=== PATIENT | male | born 1940 | race Caucasian/White ===

== ENCOUNTER 2017-03-28 11:11 | Inpatient (IN) ==
[2017-03-28] MEDS ORDERED: ALBUTEROL/IPRATROPIUM 3 ML NEB RESP TX STA (11:25)
[2017-03-28] MEDS ORDERED: FUROSEMIDE 100 MG/10 ML VIAL IV STA (11:25)
[2017-03-28] MEDS ORDERED: methylPREDNISolone SOD SUC 125 MG/2 ML VIAL IV STA (11:25)
[2017-03-28] MEDS ORDERED: methylPREDNISolone SOD SUC 125 MG/2 ML VIAL ONE (11:30)
[2017-03-28] MEDS ORDERED: FUROSEMIDE 100 MG/10 ML VIAL ONE (11:30)
--- NOTE | 2017-03-28 11:58 | EKG Report ---
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
[2017-03-28 12:14] LABS: Hematocrit 46.4 VOL% (42.0-52.0); Hemoglobin 15.4 GM/DL (14.0-18.0); White Blood Count 16.1 T/CUMM (4-12)
[2017-03-28 12:15] LABS: Basophils # 0.1 10*3/uL (0.0-0.2); Basophils % 0.7 % (0.0-0.8); Eosinophils # 0.3 10*3/uL (0.0-0.87); Immature Granulocytes % 0.4 %; Immature Granulocytes Absolute 0.07 #; Lymphocytes # 1.4 10*3/uL (1.4-4.0); Lymphocytes % 8.8 % (21.2-54.2); Mean Corpuscular HGB Conc 33.2 GM/DL (32-36); Mean Corpuscular Hemoglobin 30 PG (27-34); Mean Corpuscular Volume 89.2 FL (87-102); Mean Platelet Volume 9.3 FL (9.6-12.0); Monocytes # 0.8 10*3/uL (0.11-0.8); Neutrophils # 13.4 10*3/uL (1.4-7.4); Neutrophils % 83.1 % (38.7-73.9); Platelet Count 232 T/CUMM (130-400); Red Cell Distribution Width 13.2 % (9.3-17.3)
[2017-03-28 12:33] LABS: PT Patient Result 10.6 SECS
--- NOTE | 2017-03-28 12:38 | XRay Report ---
Portable chest March 28, 2017 at 1129 hours Indication: Shortness of breath Comparison from same date at 0553 hours FINDINGS/ IMPRESSION: No interval change in appearance of chest in the 5 hours since prior study PROCEDURE INTERPRETED AT [facility] DEPARTMENT OF RADIOLOGY Final Report Signed by: Rk Echavarria
[2017-03-28 12:42] LABS: Albumin 3.5 G/DL (3.4-5.0); Bilirubin,Total 0.7 MG/DL (0.2-1.0); Calcium 8.7 MG/DL (8.5-10.1); Magnesium 2.4 MG/DL (1.8-2.4); Osmolality,Calculated 284.1 MOS/KG (273-304); Potassium 4.7 MMOL/L (3.5-5.1); Total Protein 7.3 G/DL (6.4-8.3)
--- NOTE | 2017-03-28 12:57 | Emergency Department Note ---
INisha Emily, am scribing for, and in the presence of, Kaiden Yepez MD 11:29. ILucho Phillip K, MD, personally performed the services described in this documentation, ascribed by Lucie Cameron in my presence, and it is both accurate and complete . Arrival - Arrival Chief Complaint: Shortness of Breath Stated Complaint: shortness of breath ED Nursing Triage Note: shortness of breath that started last night, 2L per home oxygen, pt reports taking lasix on 03/27, EMS reports pt was diaphortetic and clammy on arrival with O2 at 88%. currently on CPAP, Mode of Arrival: Stretcher Limitations: No Limitations Source: Patient - History of Present Illness HPI Narrative: Pt is a 76 y/o male who came to ED with c/o SOB that started at 5am. Pt has associated sxs of white phlegm but no cough, fever, [place], all night heart was racing. Pt is a former smoker. Pt takes 40 mg Lasix and 20 mg, but denies breathing tx at home. Pt sees Aline Hahn, and Oliver. PMHx of COPD, CHF. Onset (ago): hour(s) Consistency: constant Severity: moderate Severity scale (1-10): 6 Quality: fullness Allergies/Adverse Reactions: Allergies Allergy/AdvReac Type Severity Reaction Status Date / Time Warfarin [From Coumadin] Allergy Intermediate RASH Verified 12/29/15 14:31 Iodinated Contrast Media - AdvReac Severe HIVES Verified 12/03/14 09:12 Oral and Home Medications: Home Medications Medication Instructions Recorded Confirmed Type Aspirin [Ecotrin] 81 mg PO DAILY 12/03/14 12/31/15 History Carvedilol [Coreg] 12.5 mg PO BID 12/03/14 12/31/15 History Furosemide Tab [Lasix Tab] 40 mg PO BID 12/03/14 12/31/15 History Tamsulosin [Flomax] 0.4 mg PO DAILY 12/03/14 12/31/15 History Losartan Potassium 100 mg PO DAILY 03/27/15 12/31/15 History Omeprazole 40 mg PO DAILY 03/27/15 12/31/15 History metOLazone [Metolazone] 5 mg PO DAILY 03/27/15 12/31/15 History Ticagrelor [Brilinta] 90 mg PO BID #60 tablet 01/01/16 Rx Review of System - Review of System 12 point system: reviewed and no additional remarkable complaints except as stated - Review of System Constitutional: Present: fever. Absent: chills, diaphoresis, weakness Respiratory: Present: respiratory distress. Absent: cough (white phlegm but no cough) Cardiovascular: Present: palpitations (racing), dyspnea on exertion. Absent: chest pain, orthopnea, syncope Gastrointestinal: Absent: abdominal pain, nausea, vomiting Musculoskeletal: Absent: arm pain, neck pain Skin: Absent: rash Neurological: Absent: headache Medical,Surgical,& Family Hx - Medical History Cardio: History of: Hypertension, Cardiovascular Problems (PM/ICD) Neurology: History of: Cerebrovascular Accident, TIA, Vertigo (dizziness) No history of: Seizures HEENT: History of: Ear Problem (Hard of hearing), Eye Problem (wears glasses) Endocrine: No history of: Diabetes Mellitus (IDDM), Diabetes Mellitus (NIDDM), Thyroid Disorder, Endocrine Problems Respiratory: History of: Respiratory Problems (Stated poor sleep and waiting to have sleep apnea test) No history of: COPD Genitourinary: Comment Only: Prostate Problems ( reports he complains of testicle hurts) Gastrointestinal: History of: GERD Musculoskeletal: History of: Musculoskeletal Problems (Stated levaquin affected his shoulder movement and cramps in legs.) Hematology: History of: Bleeding Problems (Stated rectal bleed due to coumadin. History of stoke) No history of: Anemia, Blood Transfusion Reaction Other: History of: Miscellaneous Medical Problems (IVP Dye allergy) No history of: Cancer - Surgical History Cardiac Surgeries: Sugical HX of: Internal Defibrillator (PM/ICD) Thoracic Surgeries: Patient denies;: Organ Transplant, Lobectomy Neurologic Surgeries: Patient denies: Neurologic Surgery HEENT Surgeries: Patient denies: Thyroid Surgery Abdominal Surgeries: Surgical HX of: Cholecystectomy, Colonoscopy ( diverticulosis and hiatal hernia) - Family History Family History: Reports;: Family Cancer (brother prostate CA), Family Heart Disease (grandmother), Family Hypertension (brother) Denies;: Family Anesthesia Reaction, Family Diabetes, Family Psychiatric Problems, Family Stroke - Social History Smoking Status: Former smoker Marital Status: Single Lives With:: Alone Functional capacity: independent ambulation Exam Vital Signs: Vital Signs Temperature 97.8 F 03/28/17 11:25 Pulse Rate 87 03/28/17 11:25 Respiratory Rate 24 03/28/17 11:25 Blood Pressure 153/90 03/28/17 11:25 O2 Sat by Pulse Oximetry 100 03/28/17 11:12 - General General appearance: alert, in distress (mild secondary to SOB) - Head Head exam: Present: atraumatic, normocephalic - Eye Eye exam: Present: PERRL, EOMI - ENT ENT exam: Present: mucous membranes moist. Absent: mucous membranes dry - Neck Neck exam: Present: full ROM - Chest Chest inspection: Present: symmetric chest wall rise. Absent: tenderness - Respiratory Respiratory exam: Present: wheezes (diffusely). Absent: normal lung sounds bilaterally, respiratory distress - Cardiovascular Cardiovascular exam: Present: regular rate, normal rhythm, normal heart sounds - Abdominal Exam Abdominal exam: Present: soft, distention (protuberant), normal bowel sounds. Absent: tenderness, guarding, rebound - Extremities Exam Extremities exam: Present: full ROM, pedal edema (+2 pitting). Absent: tenderness - Neurological Exam Neurological exam: Present: alert, oriented X3, CN II-XII intact. Absent: motor sensory deficit - Psychiatric Psychiatric exam: Present: normal affect, normal mood - Skin Skin exam: Present: warm, diaphoresis (clammy). Absent: dry, intact Results - Labs CBC & BMP: 03/28/17 11:51 03/28/17 11:51 Lab Results: I have reviewed the patients labs Labs: Laboratory Tests 03/28/17 11:51 WBC 16.1 H RBC 5.20 Hgb 15.4 Hct 46.4 Plt Count 232 MPV 9.3 L Neut % (Auto) 83.1 H Lymph % (Auto) 8.8 L Neut # (Auto) 13.4 H Laboratory Tests 03/28/17 11:51 INR 1.0 PT Patient/Control Mix 10.6 Laboratory Tests 03/28/17 03/28/17 11:51 11:51 Sodium 142 Potassium 4.7 Chloride 108 H Carbon Dioxide 29 GFR Calculation 74 Glucose 109 H AST 35 B-Natriuretic Peptide 782 H Globulin 3.8 H Albumin/Globulin Ratio 0.9 L Laboratory Tests 03/28/17 11:51 B-Natriuretic Peptide 782 H - EKG EKG results: interpreted by [facility], sinus rhythm (Lateral ischemia, PVC) - Diagnostic Findings Procedure: Chest x-ray: report reviewed by me (Prominence fo the central intersitial pattern, may be realted to atelectasis and low lung volume, could now exclude mild intersititial edema.) Disposition Clinical Impression: Acute exacerbation of chronic obstructive airways disease, Congestive heart failure Case discussed with: patient Disposition: Still a Patient Condition: Guarded Additional Instructions: Admit to the hospitalist.
--- NOTE | 2017-03-28 13:42 | Hospitalist History & Physical ---
<Negin Stallworth - Last Filed: 03/28/17 13:21> Assessment and Plan - Time spent with patient Time spent with patient: Greater than 30 minutes (1) Congestive heart failure Status: Acute Assessment and plan: 03/28/17 Admit Diuretics Duonebs and steroids repeat a.m. labs serial troponin repeat EKG Will discuss with Dr Benavidez for further recommendations with care Current Visit: Yes History of Present Illness Chief complaint: shortness of breath History of present illness: Mr. Vance is a 76 year old white male w/PMHx of hypertension, PM/ICD placement, CVA, TIA, Vertigo (dizziness) Sleep Apnea, GERD presented to the ED via EMS for further evaluation of increasing shortness of breath that became worse at 5 a.m. He reports feeling short of breath for about a week which became much worse this morning, and he felt "like I could not get my breath in and my heart was racing" with associated diaphoresis without nausea or vomiting. He reports feeling short of breath with exertion for about 4 months. He reports a history of sleep apnea and needs CPAP. He was suppose to have a sleep study done a month ago with a physician in [place] but missed his appointment. He denies chest pain or fever. IN ED: LABS significant: WBC 16.1, BNP 782, Glucose 109. CXR: prominence of the central interstitial pattern, may be related to atelectasis and low lung volume, could not exclude mild interstitial edema. Hospital services consulted for admission and further evaluation. Upon exam, he had a notable area to the upper abdomen/epigastric that was red without drainage and verbalized that it was one of the areas from having his GB removed by laparoscopy a couple of years ago. Patient is former smoker quit in 2000. Denies alcohol use or drug use. He denies taking the Flu vaccine. PCP: Dr Boyd Harness Puller: Dr Hahn PVD: Dr Naranjo (with leg stent placement) After discussion with Dr Yepez in the ED and Dr Benavidez with Hospital Services , it was agreed to admit patient for further evaluation and treatment of CHF exacerbation. Home medications will be reviewed and reconciliation to follow. Home Medications Medication Instructions Recorded Confirmed Type Aspirin [Ecotrin] 81 mg PO DAILY 12/03/14 03/28/17 History Carvedilol [Coreg] 2 tablet PO BID 12/03/14 03/28/17 History Furosemide Tab [Lasix Tab] 40 mg PO DAILY 12/03/14 03/28/17 History Tamsulosin [Flomax] 0.4 mg PO DAILY 12/03/14 03/28/17 History Losartan Potassium 100 mg PO DAILY 03/27/15 03/28/17 History Omeprazole 40 mg PO DAILY 03/27/15 03/28/17 History metOLazone [Metolazone] 5 mg PO DAILY 03/27/15 03/28/17 History Ticagrelor [Brilinta] 90 mg PO BID #60 tablet 01/01/16 03/28/17 Rx Atorvastatin [Lipitor] 1 tablet PO DAILY 03/28/17 03/28/17 History Allergies Allergy/AdvReac Type Severity Reaction Status Date / Time Warfarin [From Coumadin] Allergy Intermediate RASH Verified 12/29/15 14:31 Iodinated Contrast Media - AdvReac Severe HIVES Verified 12/03/14 09:12 Oral and Medical,Surgical,& Family Hx - Medical History Cardio: History of: Hypertension, Cardiovascular Problems (PM/ICD) Neurology: History of: Cerebrovascular Accident, TIA, Vertigo (dizziness) No history of: Seizures HEENT: History of: Ear Problem (Hard of hearing), Eye Problem (wears glasses) Endocrine: No history of: Diabetes Mellitus (IDDM), Diabetes Mellitus (NIDDM), Thyroid Disorder, Endocrine Problems Respiratory: History of: Respiratory Problems (Stated poor sleep and waiting to have sleep apnea test) No history of: COPD Genitourinary: Comment Only: Prostate Problems ( reports he complains of testicle hurts) Gastrointestinal: History of: GERD Musculoskeletal: History of: Musculoskeletal Problems (Stated levaquin affected his shoulder movement and cramps in legs.) Hematology: History of: Bleeding Problems (Stated rectal bleed due to coumadin. History of stoke) No history of: Anemia, Blood Transfusion Reaction Other: History of: Miscellaneous Medical Problems (IVP Dye allergy) No history of: Cancer - Surgical History Cardiac Surgeries: Sugical HX of: Internal Defibrillator (PM/ICD) Thoracic Surgeries: Patient denies;: Organ Transplant, Lobectomy Neurologic Surgeries: Patient denies: Neurologic Surgery HEENT Surgeries: Patient denies: Thyroid Surgery Abdominal Surgeries: Surgical HX of: Cholecystectomy, Colonoscopy ( diverticulosis and hiatal hernia) - Family History Family History: Reports;: Family Cancer (brother prostate CA), Family Heart Disease (grandmother), Family Hypertension (brother) Denies;: Family Anesthesia Reaction, Family Diabetes, Family Psychiatric Problems, Family Stroke - Social History Smoking Status: Former smoker (quit in 2000) Frequency of Alcohol Use: None Type of Drug Use: None Functional capacity: independent ambulation 12 point system: reviewed and no additional remarkable complaints except as stated - Constitutional Constitutional: Absent: anorexia, fever(s), lethargy - EENT Eyes: Absent: blurry vision Ears: Absent: ear discharge, ear pain Nose, mouth and throat: Absent: nasal congestion, sore throat, throat swelling, tongue swelling - Cardiovascular Cardiovascular: Present: dyspnea on exertion, edema (2+ edema). Absent: chest pain at rest, chest pain with activity - Respiratory Respiratory: Present: dyspnea on exertion. Absent: wheezing - Gastrointestinal Gastrointestinal: Absent: nausea - Neurological Neurological: Present: dizziness (history of vertigo). Absent: abnormal speech , confusion, frequent falls - Psychiatric Psychiatric: Absent: anxiety Exam - Constitutional Vitals: Period Temp Pulse Resp BP Sys/Joiner Pulse Ox Last 24 Hr 97.8 F-97.8 F 87-87 24-24 153-153/90-90 100 General appearance: no acute distress, over weight - Head Head exam: Present: normal inspection, other (had a cyst removed from scalp by Dr Boyd, suppose to have stitches removed tomorrow) - Neck Neck exam: Present: normal inspection. Absent: thyromegaly - Respiratory Respiratory exam: Present: clear to auscultation bilaterally, prolonged expiratory phase. Absent: rhonchi, wheezes - Cardiovascular Cardiovascular exam: Present: regular rate and rhythm - GI/Abdominal GI/Abdominal exam: Present: normal bowel sounds, soft. Absent: guarding, tenderness, rebound - Extremities Exam Extremities exam: Present: full ROM, edema (2+) - Neurological Exam Neurological exam: Present: alert, oriented X3, CN II-XII intact - Psychiatric Psychiatric exam: Present: normal affect, normal mood. Absent: agitated, anxious - Skin Skin exam: Present: normal color, warm, dry Results - Labs CBC & BMP: 03/28/17 11:51 03/28/17 11:51 Lab Results: I have reviewed the past 24 hour labs <Damaris Benavidez - Last Filed: 03/28/17 14:13> Assessment and Plan (1) Acute on chronic systolic (congestive) heart failure Status: Acute Assessment and plan: Lasix 40 mg IV every 12, restart Coreg, echocardiogram, spironolactone Current Visit: Yes (2) Acute exacerbation of chronic obstructive airways disease Status: Acute Assessment and plan: Duo nebs every 6 hours, low-dose steroids and clindamycin Current Visit: Yes (3) Hypertension Status: Chronic Assessment and plan: restart coreg and losartan Current Visit: No (4) Nonischemic cardiomyopathy Status: Chronic Assessment and plan: Status post heart cath from December 03, 2014 shows an EF of 20% with severe global dysfunction and moderate pulmonary hypertension Current Visit: No (5) Peripheral arterial disease Status: Acute Assessment and plan: s/p stent right femoral by Dr Yin on 12/31/15 Current Visit: Yes (6) Abscess Status: Acute Assessment and plan: clindamycin IV, blood cx times 2 Current Visit: Yes (7) JOSEPH (obstructive sleep apnea) Status: Acute Assessment and plan: consult Dr Strauss Current Visit: Yes History of Present Illness History of present illness: Mr. Vance is a 76 year old male seen and examined. History and physical reviewed and edited. Agree with above. Medical,Surgical,& Family Hx - Social History Lives With:: Alone - Gastrointestinal Gastrointestinal: Present: constipation. Absent: diarrhea, vomiting - Genitourinary Genitourinary: Absent: difficulty urinating, dysuria - Neurological Neurological: Absent: focal weakness, syncope - Psychiatric Psychiatric: Absent: depression - Endocrine Endocrine: Present: fatigue, heat intolerance. Absent: cold intolerance Exam - Constitutional Vitals: Period Temp Pulse Resp BP Sys/Joiner Pulse Ox Last 24 Hr 97.8 F-97.8 F 72-87 18-24 153-153/90-90 98-100 - Head Head exam: Present: normocephalic - Eye Eye exam: Present: EOMI. Absent: scleral icterus Pupils: Present: SORAIDA, normal accommodation - ENT ENT exam: Present: normal exam, normal external ear exam - Respiratory Respiratory exam: Present: decreased breath sounds - Cardiovascular Cardiovascular exam: Absent: systolic murmur - Extremities Exam Extremities exam: Present: normal capillary refill - Neurological Exam Neurological exam: Present: reflexes normal. Absent: motor sensory deficit - Skin Skin exam: Present: other (erythema 4 mm on abdomen ) Results - Labs CBC & BMP: 03/28/17 11:51 03/28/17 11:51 - EKG EKG shows: sinus rhythm (st depression in inferior lateral leads ) - Diagnostic Findings Procedure: Chest x-ray: report reviewed by me (pulmonary edema )
[2017-03-28] MEDS ORDERED: ONDANSETRON 4 MG/2 ML VIAL IV PRN (14:28)
[2017-03-28] MEDS ORDERED: LACTULOSE 20 GM/30 ML UDCUP PO PRN (14:28)
[2017-03-28] MEDS ORDERED: ACETAMINOPHEN 325 MG TABLET PO PRN (14:28)
[2017-03-28] MEDS ORDERED: MAGNESIUM SULF RIDER 2 GM in PREMIX 1 EACH IV PRN (14:28)
[2017-03-28] MEDS ORDERED: MAGNESIUM SULF RIDER 4 GM in PREMIX 1 EACH IV PRN (14:28)
[2017-03-28] MEDS ORDERED: ZALEPLON 5 MG CAPSULE PO PRN (14:28)
[2017-03-28 15:51] LABS: Thyroid Stimulating Hormone 1.24 uIU/ml (0.358-3.74)
[2017-03-28 15:56] LABS: Troponin I Only 0.257 NG/ML (0.00-0.045)
[2017-03-28] MEDS: FUROSEMIDE 40 MG/4 ML VIAL IV SCH (15:58)
[2017-03-28] MEDS: ENOXAPARIN 40 MG/0.4 ML SYRINGE SUBCUT SCH (16:00)
[2017-03-28] MEDS: SPIRONOLACTONE 25 MG TABLET PO SCH (16:01)
[2017-03-28] MEDS: LOSARTAN 25 MG TABLET PO SCH (16:01)
[2017-03-28] MEDS: CARVEDILOL 6.25 MG TABLET PO SCH ×2 (16:01→20:34)
[2017-03-28] MEDS: TAMSULOSIN 0.4 MG CAPSULE PO SCH (16:01)
[2017-03-28] MEDS: CLINDAMYCIN INJ 600 MG in PREMIX 1 EACH IV SCH ×2 (16:03→23:08)
[2017-03-28] MEDS: ALBUTEROL/IPRATROPIUM 3 ML NEB RESP TX SCH (16:30)
[2017-03-28] MEDS: TICAGRELOR 90 MG TABLET PO SCH (20:34)
[2017-03-28] MEDS: methylPREDNISolone SOD SUC 40 MG/1 ML VIAL IV SCH (23:07)
[2017-03-29] MEDS: ALBUTEROL/IPRATROPIUM 3 ML NEB RESP TX SCH ×4 (02:11→18:51)
[2017-03-29 05:43] LABS: Basophils % 0.1 % (0.0-0.8); Hematocrit 45.5 VOL% (42.0-52.0); Hemoglobin 15.7 GM/DL (14.0-18.0); Immature Granulocytes % 0.6 %; Immature Granulocytes Absolute 0.07 #; Lymphocytes # 0.8 10*3/uL (1.4-4.0); Lymphocytes % 6.1 % (21.2-54.2); Mean Corpuscular HGB Conc 34.5 GM/DL (32-36); Mean Corpuscular Hemoglobin 30 PG (27-34); Mean Corpuscular Volume 86.2 FL (87-102); Mean Platelet Volume 9.8 FL (9.6-12.0); Monocytes # 0.1 10*3/uL (0.11-0.8); Monocytes % 0.9 % (1.7-12.7); Neutrophils # 11.4 10*3/uL (1.4-7.4); Neutrophils % 92.3 % (38.7-73.9); Platelet Count 254 T/CUMM (130-400); Red Blood Count 5.28 MC/CUMM (3.8-5.5); White Blood Count 12.4 T/CUMM (4-12)
[2017-03-29 06:26] LABS: Calcium 9.4 MG/DL (8.5-10.1); Osmolality,Calculated 286.3 MOS/KG (273-304); Potassium 4.2 MMOL/L (3.5-5.1); Risk Ratio 2.87; VLDL CHOLESTEROL 13.6 MG/DL
[2017-03-29] MEDS: CLINDAMYCIN INJ 600 MG in PREMIX 1 EACH IV SCH ×3 (06:31→23:25)
[2017-03-29 06:34] LABS: Band Neutrophils 1 % (0-10); Giant Platelets Few; Hypochromasia Slight; Lymphocytes 3 % (20-55); Platelet Estimate Adequate; Segmented Neutrophils 93 % (50-85); Total Cells Counted 100
[2017-03-29] MEDS: PANTOPRAZOLE 40 MG TABLET PO SCH (08:18)
[2017-03-29] MEDS: CARVEDILOL 6.25 MG TABLET PO SCH ×2 (08:18→20:38)
[2017-03-29] MEDS: TAMSULOSIN 0.4 MG CAPSULE PO SCH (08:18)
[2017-03-29] MEDS: ASPIRIN EC 81 MG TABLET PO SCH (08:18)
[2017-03-29] MEDS: TICAGRELOR 90 MG TABLET PO SCH ×2 (08:18→20:38)
[2017-03-29] MEDS: LOSARTAN 25 MG TABLET PO SCH (08:19)
[2017-03-29] MEDS: SPIRONOLACTONE 25 MG TABLET PO SCH (08:19)
[2017-03-29] MEDS: FUROSEMIDE 40 MG/4 ML VIAL IV SCH ×2 (08:19→15:13)
[2017-03-29] MEDS: methylPREDNISolone SOD SUC 40 MG/1 ML VIAL IV SCH ×2 (11:36→23:25)
[2017-03-29] MEDS ORDERED: MECLIZINE 12.5 MG TABLET PO PRN (15:14)
--- NOTE | 2017-03-29 15:16 | Hospitalist Progress Note ---
Assessment and Plan (1) Acute on chronic systolic (congestive) heart failure Status: Acute Assessment and plan: The patient is improving on IV diuresis. Will recheck electrolytes tomorrow, and anticipate discharge home tomorrow the following day. Current Visit: Yes (2) Acute exacerbation of chronic obstructive airways disease Status: Chronic Current Visit: Yes Hospitalist: Subjective Interval history: The patient was admitted to the hospital with exacerbation of systolic congestive heart failure. The patient is improving with diuresis. The patient complains of dizziness today and request to restart his Antivert. Exam - Constitutional Vitals: Period Temp Pulse Resp BP Sys/Joiner Pulse Ox Last 24 Hr 97.6 F-98.8 F 67-113 16-20 111-166/57-93 18-99 - Head Head exam: Present: normocephalic - Respiratory Respiratory exam: Present: rales (Right greater than left base). Absent: chest wall tenderness - Cardiovascular Cardiovascular exam: Present: regular rate and rhythm - GI/Abdominal GI/Abdominal exam: Present: normal bowel sounds Results - Labs CBC & BMP: 03/29/17 04:14 03/29/17 04:14 Lab Results: I have reviewed the past 24 hour labs
[2017-03-29] MEDS: ENOXAPARIN 40 MG/0.4 ML SYRINGE SUBCUT SCH (15:17)
--- NOTE | 2017-03-29 15:17 | Discharge Summary ---
Diagnosis - Discharge Diagnosis (1) Acute on chronic systolic (congestive) heart failure Status: Acute (2) Acute exacerbation of chronic obstructive airways disease Status: Chronic Specialty Discharge - Follow Up or Referrals Follow up with: Rambo Patel DO [Physician] - 1 Month (dizziness) Discharge Plan - Discharge Data Disposition: Disch To Home/Self Care Condition at Discharge: Stable Discharge Diet: advance to your usual diet Activity: resume usual activities as tolerated - Discharge Medications New Carvedilol [Coreg] 6.25 mg PO BID #90 tablet Tamsulosin [Flomax] 0.4 mg PO DAILY #60 capsule Ticagrelor [Brilinta] 90 mg PO BID #90 tablet Continue Furosemide Tab [Lasix Tab] 40 mg PO DAILY Aspirin [Ecotrin] 81 mg PO DAILY Omeprazole 40 mg PO DAILY Atorvastatin [Lipitor] 1 tablet PO DAILY Losartan Potassium 100 mg PO DAILY #60 metOLazone [Metolazone] 5 mg PO DAILY #60 Discontinued Carvedilol [Coreg] 2 tablet PO BID - Follow Up or Referral Follow Up: Rambo Patel DO [Physician] - 1 Month (dizziness) - Forms/Instructions Exam - Constitutional Vitals: Period Temp Pulse Resp BP Sys/Joiner Pulse Ox Last 24 Hr 97.6 F-98.8 F 67-113 16-20 111-166/57-93 18-99 Discharge Results Procedures and tests throughout hospitalization: Pending Orders 03/28/17 14:55 Blood Culture Stat 03/30/17 04:00 Basic Metabolic Panel IN AM Comp Blood Count Auto Diff IN AM 03/31/17 04:00 Basic Metabolic Panel IN AM Comp Blood Count Auto Diff IN AM Labs on day of discharge: Labs from last 24 hours 03/29/17 03/29/17 03/28/17 04:14 04:14 21:00 WBC 12.4 H RBC 5.28 Hgb 15.7 Hct 45.5 MCV 86.2 L MCH 30 MCHC 34.5 RDW 13.0 Plt Count 254 MPV 9.8 Neut % (Auto) 92.3 H Lymph % (Auto) 6.1 L [place] % (Auto) 0.9 L Eos % (Auto) 0.0 Baso % (Auto) 0.1 Neut # (Auto) 11.4 H Lymph # (Auto) 0.8 L [place] # (Auto) 0.1 L Eos # (Auto) 0.0 Baso # (Auto) 0.0 Total Counted 100 Immature Gran % 0.6 Nucleated RBC % 0.0 Immature Gran # 0.07 Segmented Neutrophils 93 H Band Neutrophils 1 Lymphocytes 3 L Monocytes 3 Nucleated RBCs # 0.00 Platelet Estimate Adequate Giant Platelets Few Immature Plt Fraction 0.0 Hypochromasia Slight Sodium 141 Potassium 4.2 Chloride 103 Carbon Dioxide 29 Anion Gap 13.2 BUN 22 H Creatinine 1.30 GFR Calculation 66 BUN/Creatinine Ratio 16.00 Glucose 159 H Hemoglobin A1c Calculated Osmolality 286.3 Calcium 9.4 Magnesium Troponin I 0.319 H D Triglycerides 68 Cholesterol 175 LDL Cholesterol 103.0 VLDL Cholesterol 13.6 HDL Cholesterol 61 H Heart Disease Risk Ratio 2.87 TSH 3rd Generation 03/28/17 03/28/17 03/28/17 14:56 14:55 14:55 WBC RBC Hgb Hct MCV MCH MCHC RDW Plt Count MPV Neut % (Auto) Lymph % (Auto) [place] % (Auto) Eos % (Auto) Baso % (Auto) Neut # (Auto) Lymph # (Auto) [place] # (Auto) Eos # (Auto) Baso # (Auto) Total Counted Immature Gran % Nucleated RBC % Immature Gran # Segmented Neutrophils Band Neutrophils Lymphocytes Monocytes Nucleated RBCs # Platelet Estimate Giant Platelets Immature Plt Fraction Hypochromasia Sodium Potassium Chloride Carbon Dioxide Anion Gap BUN Creatinine GFR Calculation BUN/Creatinine Ratio Glucose Hemoglobin A1c 5.9 Calculated Osmolality Calcium Magnesium 2.3 Troponin I 0.257 H Triglycerides Cholesterol LDL Cholesterol VLDL Cholesterol HDL Cholesterol Heart Disease Risk Ratio TSH 3rd Generation 1.240 Preliminary micro results at discharge 03/28/17 14:55 Blood Culture - Preliminary Blood No growth at 1 day 03/28/17 14:55 Blood Culture - Preliminary Blood No growth at 1 day DS: Provider Date of admission: 03/28/17 12:59 Primary care physician: . No PCP Attending physician on admission: Damaris Benavidez MD Consults: 03/28/17 14:28 Consult to Sleep Center [CONS] Routine Reason for Sleep Center: Sleep Center Physician Consult Comment: joseph 03/29/17 07:22 Consult to Sleep Center [CONS] Routine Reason for Sleep Center: Sleep Center Physician Consult Comment: JOSEPH Discharging clinician: Phill Saldaña MD
--- NOTE | 2017-03-29 19:36 | ECHO Report ---
Silvino Vance Exam Date: 03/29/2017 07:41 Referring Physician: Technologist: Светлана Miller RDCS Age: 76 Ht (in): 66 Wt (lb): 237 Gender: M Exam Location: [facility] Echo Indications: Acute on chronic systolic (congestive) heart failure, Shortness of breath, Dizziness and giddiness, JOSEPH, Essential (primary) hypertension, Transient cerebral ischemic attack, unspecified, Presence of automatic (implantable) cardiac defibrillator BP: 120 / 93 HR: 90 Rhythm: Sinus Technical Quality: Poor IMPRESSIONS Suspected severely reduced LV systolic function with regional wall motion as described below, ejection fraction estimated at 30-40%. Grade 1/4 diastolic dysfunction. Mild left atrial enlargement. Trace mitral and tricuspid regurgitation. Right side electronic leads consistent with pacemaker or defibrillator. MEASUREMENTS (Male / Female) Normal Values 2D ECHO LV Diastolic Diameter PLAX 5.5 cm 4.2 - 5.9 / 3.9 - 5.3 cm LV Systolic Diameter PLAX 3.4 cm LV Fractional Shortening PLAX 38.2 % IVS Diastolic Thickness 1.0 cm 0.6 - 1.0 / 0.6 - 0.9 cm LVPW Diastolic Thickness 1.0 cm 0.6 - 1.0 / 0.6 - 0.9 cm RV Internal Dim ED PLAX 2.8 cm Aortic Root Diameter 3.8 cm LA Systolic Diameter LX 4.4 cm 3.0 - 4.0 / 2.7 - 3.8 cm DOPPLER TR Peak Velocity 290.0 cm/s TR Peak Gradient 33.6 mmHg FINDINGS Left Ventricle Normal left ventricular cavity size. There is poor endocardial resolution which hinders regional wall motion assessment and overall evaluation of systolic function, although the systolic function is suspected to be moderately to severely reduced. There is an impression that the inferior, posterior and lateral weeks are relatively more hypokinetic than the remainder of the myocardium. There is abnormal septal motion consistent with underlying bundle branch block or paced rhythm. There is grade 1/4 diastolic dysfunction consistent with impaired relaxation. Right Ventricle Normal right ventricular size. Catheter/pacemaker wire visualized in the right ventricle. Right Atrium Normal right atrial size. Catheter/pacemaker wire in the right atrial cavity. Left Atrium The left atrium is mildly enlarged. Mitral Valve Morphologically normal mitral valve. Trace mitral valve regurgitation. Aortic Valve Mild aortic valve sclerosis without stenosis or regurgitation. Tricuspid Valve Morphologically normal tricuspid valve. Trace tricuspid valve regurgitation. Pulmonic Valve Morphologically normal pulmonic valve without significant stenosis. There is no pulmonic regurgitation. Pericardium Normal pericardium without effusion. Aorta Normal ascending aorta dimension. Mague Goodwin MD (Electronically Signed) Final Date: 29 March 2017 19:35
--- NOTE | 2017-03-29 19:53 | Sleep Medicine Consult ---
Assessment and Plan (1) JOSEPH (obstructive sleep apnea) Status: Acute Assessment and plan: I will need to check my prior records from [facility] sleep center. He does not think that he had sleep study evaluation but he was seen in the sleep clinic and scheduled for sleep study. We may be able to do home sleep study on him while here in the hospital and if he is discharged tomorrow, we will schedule him for outpatient sleep study at [facility]. Thank you for this consult and the opportunity to participate in his care. Current Visit: Yes (2) Hypertension Status: Chronic Assessment and plan: The prevalence rate for obstructive sleep apnea patients with hypertension is 35 %. That rate can be as high as 80% in patients who require 4 or more medications for blood pressure control. Current Visit: No (3) Congestive heart failure Status: Acute Assessment and plan: Untreated obstructive sleep apnea certainly can be an exacerbating factor of congestive heart failure, whether systolic or diastolic in nature. Treatment of obstructive sleep apnea in patients with CHF has been shown to improve ejection fraction in those with systolic dysfunction and also to decrease readmission rate. Current Visit: Yes History of Present Illness Chief complaint: Sleep apnea History of present illness: Mr. Vance is a 76 year old male who apparently has been seen by me in the past at [facility] [place]. He did not keep appointment for polysomnography due to extenuating circumstances. His states that he does need to be reevaluated. He does have a history of loud snoring and abnormal breathing during sleep and stops breathing frequently during his sleep. He does have issues with nocturia. He has been admitted on this occasion for congestive heart failure. He is bothered by very irregular sleep schedule. He has a hard time staying asleep due to frequent awakenings with difficulty breathing and nocturia. He has an Antelope sleepiness score of 11 and a stop bang score of 6. Home Medications Medication Instructions Recorded Confirmed Type Aspirin [Ecotrin] 81 mg PO DAILY 12/03/14 03/28/17 History Carvedilol [Coreg] 2 tablet PO BID 12/03/14 03/28/17 History Furosemide Tab [Lasix Tab] 40 mg PO DAILY 12/03/14 03/28/17 History Losartan Potassium 100 mg PO DAILY 03/27/15 03/28/17 History Omeprazole 40 mg PO DAILY 03/27/15 03/28/17 History metOLazone [Metolazone] 5 mg PO DAILY 03/27/15 03/28/17 History Atorvastatin [Lipitor] 1 tablet PO DAILY 03/28/17 03/28/17 History Allergies Allergy/AdvReac Type Severity Reaction Status Date / Time Warfarin [From Coumadin] Allergy Intermediate RASH Verified 12/29/15 14:31 Iodinated Contrast Media - AdvReac Severe HIVES Verified 12/03/14 09:12 Oral and Review of systems: Otherwise unremarkable from a sleep standpoint. Exam (Pulmonay) H&P - Constitutional Vitals: Period Temp Pulse Resp BP Sys/Joiner Pulse Ox Last 24 Hr 97.2 F-98.8 F 67-113 16-20 111-149/57-93 18-99 Exam: He is alert responsive and in no acute distress. Pupils equal round reactive to light and accommodation. Extraocular movements intact. Oropharynx with a class III Mallampati exam. Neck is supple without adenopathy or thyromegaly. No supraclavicular adenopathy is noted. Chest with good air movement and no focal wheeze or rhonchi. Cardiac exam reveals a regular rhythm without murmur or gallop. Abdomen soft nontender without palpable hepatosplenomegaly or mass. Extremities are without significant clubbing or cyanosis. Neurologically, he is grossly intact. Medical,Surgical,& Family Hx - Medical History Cardio: History of: Hypertension, Cardiovascular Problems (PM/ICD) Neurology: History of: Cerebrovascular Accident, TIA, Vertigo (dizziness) No history of: Seizures HEENT: History of: Ear Problem (Hard of hearing), Eye Problem (wears glasses) Endocrine: No history of: Diabetes Mellitus (IDDM), Diabetes Mellitus (NIDDM), Thyroid Disorder, Endocrine Problems Respiratory: History of: COPD, Respiratory Problems (Stated poor sleep and waiting to have sleep apnea test) Genitourinary: Comment Only: Prostate Problems ( reports he complains of testicle hurts) Gastrointestinal: History of: GERD Musculoskeletal: History of: Musculoskeletal Problems (Stated levaquin affected his shoulder movement and cramps in legs.) Hematology: History of: Bleeding Problems (Stated rectal bleed due to coumadin. History of stoke) No history of: Anemia, Blood Transfusion Reaction Other: History of: Miscellaneous Medical Problems (IVP Dye allergy) No history of: Cancer - Surgical History Cardiac Surgeries: Sugical HX of: Internal Defibrillator (PM/ICD) Thoracic Surgeries: Patient denies;: Organ Transplant, Lobectomy Neurologic Surgeries: Patient denies: Neurologic Surgery HEENT Surgeries: Patient denies: Thyroid Surgery Abdominal Surgeries: Surgical HX of: Cholecystectomy, Colonoscopy ( diverticulosis and hiatal hernia) - Family History Family History: Reports;: Family Cancer (brother prostate CA), Family Heart Disease (grandmother), Family Hypertension (brother) Denies;: Family Anesthesia Reaction, Family Diabetes, Family Psychiatric Problems, Family Stroke - Social History Smoking Status: Former smoker Frequency of Alcohol Use: None Type of Drug Use: None Results - Labs CBC & BMP: 03/29/17 04:14 03/29/17 04:14 Lab Results: I have reviewed the past 24 hour labs Specialty Discharge - Follow Up or Referrals Follow up with: Rambo Patel DO [Physician] - 1 Month (dizziness)
[2017-03-30] MEDS: ALBUTEROL/IPRATROPIUM 3 ML NEB RESP TX SCH ×2 (00:46→07:47)
[2017-03-30 04:51] LABS: Calcium 8.9 MG/DL (8.5-10.1)
[2017-03-30 04:52] LABS: Osmolality,Calculated 287.5 MOS/KG (273-304)
[2017-03-30 06:06] LABS: Basophils % 0.1 % (0.0-0.8); Hematocrit 43.1 VOL% (42.0-52.0); Hemoglobin 15.1 GM/DL (14.0-18.0); Immature Granulocytes % 0.7 %; Immature Granulocytes Absolute 0.14 #; Lymphocytes # 0.7 10*3/uL (1.4-4.0); Lymphocytes % 3.3 % (21.2-54.2); Mean Corpuscular Hemoglobin 30 PG (27-34); Mean Corpuscular Volume 85.3 FL (87-102); Mean Platelet Volume 9.6 FL (9.6-12.0); Monocytes # 0.4 10*3/uL (0.11-0.8); Monocytes % 2.1 % (1.7-12.7); Neutrophils # 18.4 10*3/uL (1.4-7.4); Neutrophils % 93.8 % (38.7-73.9); Platelet Count 243 T/CUMM (130-400); Red Blood Count 5.05 MC/CUMM (3.8-5.5); Red Cell Distribution Width 13.1 % (9.3-17.3); White Blood Count 19.6 T/CUMM (4-12)
[2017-03-30] MEDS: CLINDAMYCIN INJ 600 MG in PREMIX 1 EACH IV SCH (06:17)
[2017-03-30 06:33] LABS: Giant Platelets Few; Hypochromasia 1+; Lymphocytes 6 % (20-55); Platelet Estimate Adequate; Segmented Neutrophils 94 % (50-85); Total Cells Counted 100
[2017-03-30 06:34] LABS: Ovalocytes Slight
[2017-03-30] MEDS: LOSARTAN 25 MG TABLET PO SCH (08:57)
[2017-03-30] MEDS: TICAGRELOR 90 MG TABLET PO SCH (08:57)
[2017-03-30] MEDS: ASPIRIN EC 81 MG TABLET PO SCH (08:58)
[2017-03-30] MEDS: CARVEDILOL 6.25 MG TABLET PO SCH (08:58)
[2017-03-30] MEDS: PANTOPRAZOLE 40 MG TABLET PO SCH (08:58)
[2017-03-30] MEDS: TAMSULOSIN 0.4 MG CAPSULE PO SCH (08:58)
[2017-03-30] MEDS: FUROSEMIDE 40 MG/4 ML VIAL IV SCH (08:58)
[2017-03-30] MEDS: SPIRONOLACTONE 25 MG TABLET PO SCH (08:58)
[2017-03-30 12:05] VITALS: BP 141/85
== END 2017-03-30 12:30 | disposition home or self-care (01) | DRG 292 ==
LOC: EDBD → EDUNIT# → N.ED 11:11 → N.EDINP 12:59 → SUATTDRO 12:59 → N.EDINP 14:27 → N.TELES 14:42
PROVIDERS: ADMIT Internal Medicine; ATTEND Internal Medicine

== ENCOUNTER 2017-07-20 09:11 | Inpatient (IN) ==
[2017-07-20] MEDS ORDERED: hydrALAZINE 20 MG/1 ML VIAL IV STA (09:38)
[2017-07-20] MEDS ORDERED: FUROSEMIDE 40 MG/4 ML VIAL IV STA (10:27)
[2017-07-20] MEDS ORDERED: FUROSEMIDE 40 MG/4 ML VIAL ONE (10:33)
[2017-07-20] MEDS ORDERED: ONDANSETRON 4 MG/2 ML VIAL IV PRN (12:16)
[2017-07-20] MEDS ORDERED: ACETAMINOPHEN 325 MG TABLET PO PRN (12:16)
[2017-07-20] MEDS ORDERED: ENOXAPARIN 30 MG/0.3 ML SYRINGE SUBCUT SCH (12:30)
[2017-07-20] MEDS ORDERED: TICAGRELOR 90 MG TABLET PO SCH (12:30)
[2017-07-20] MEDS ORDERED: CARVEDILOL 3.125 MG TABLET ONE (12:38)
[2017-07-20] MEDS ORDERED: TAMSULOSIN 0.4 MG CAPSULE PO ONE (12:39)
[2017-07-20 12:50] LABS: Albumin 3.8 G/DL (3.4-5.0); Bilirubin,Direct 0.2 MG/DL (0.0-0.20); Bilirubin,Indirect 0.7 MG/DL (0.0-1.0); Bilirubin,Total 0.9 MG/DL (0.2-1.0); Total Protein 7.5 G/DL (6.4-8.3)
[2017-07-20] MEDS ORDERED: PANTOPRAZOLE 40 MG TABLET PO ONE (13:25)
[2017-07-20] MEDS: LOSARTAN 50 MG TABLET PO SCH (13:29)
[2017-07-20] MEDS: TAMSULOSIN 0.4 MG CAPSULE PO SCH (13:30)
[2017-07-20] MEDS: CARVEDILOL 6.25 MG TABLET PO SCH ×2 (13:30→21:14)
[2017-07-20] MEDS: PANTOPRAZOLE 40 MG TABLET PO SCH (13:30)
[2017-07-20] MEDS: ASPIRIN EC 81 MG TABLET PO SCH (13:30)
[2017-07-20] MEDS ORDERED: MECLIZINE 25 MG TABLET PO PRN (15:26)
[2017-07-20] MEDS: FUROSEMIDE 40 MG/4 ML VIAL IV SCH (15:43)
[2017-07-20] MEDS ORDERED: ALBUTEROL 2.5 MG/3 ML NEB RESP TX PRN (18:08)
[2017-07-20] MEDS: methylPREDNISolone SOD SUC 40 MG/1 ML VIAL IV SCH (18:44)
[2017-07-20] MEDS: ATORVASTATIN 10 MG TABLET PO SCH (21:14)
[2017-07-20] MEDS: TICAGRELOR 90 MG TABLET PO SCH (21:14)
[2017-07-20] MEDS: ALBUTEROL/IPRATROPIUM 3 ML NEB RESP TX SCH (21:15)
[2017-07-21] MEDS: ALBUTEROL/IPRATROPIUM 3 ML NEB RESP TX SCH ×4 (00:27→19:32)
[2017-07-21] MEDS: methylPREDNISolone SOD SUC 40 MG/1 ML VIAL IV SCH ×3 (02:20→18:25)
[2017-07-21 05:54] LABS: Basophils % 0.4 % (0.0-0.8); Eosinophils % 0.5 % (0.00-10.9); Immature Granulocytes % 0.5 %; Immature Granulocytes Absolute 0.04 #; Lymphocytes # 0.7 10*3/uL (1.4-4.0); Lymphocytes % 7.9 % (21.2-54.2); Mean Corpuscular HGB Conc 33.3 GM/DL (32-36); Mean Corpuscular Hemoglobin 29 PG (27-34); Mean Corpuscular Volume 86.7 FL (87-102); Mean Platelet Volume 10.1 FL (9.6-12.0); Monocytes # 0.2 10*3/uL (0.11-0.8); Monocytes % 2.8 % (1.7-12.7); Neutrophils # 7.3 10*3/uL (1.4-7.4); Neutrophils % 87.9 % (38.7-73.9); Platelet Count 228 T/CUMM (130-400); Red Blood Count 5.19 MC/CUMM (3.8-5.5); Red Cell Distribution Width 13.2 % (9.3-17.3); White Blood Count 8.3 T/CUMM (4-12)
[2017-07-21 06:15] LABS: Calcium 9.2 MG/DL (8.5-10.1); Osmolality,Calculated 280.5 MOS/KG (273-304); Potassium 3.8 MMOL/L (3.5-5.1)
[2017-07-21 06:18] LABS: Albumin 3.5 G/DL (3.4-5.0); Bilirubin,Total 1.4 MG/DL (0.2-1.0); Calcium 8.9 MG/DL (8.5-10.1); Osmolality,Calculated 281.4 MOS/KG (273-304); Potassium 3.8 MMOL/L (3.5-5.1); Total Protein 7.2 G/DL (6.4-8.3)
[2017-07-21] MEDS: PANTOPRAZOLE 40 MG TABLET PO SCH (08:19)
[2017-07-21] MEDS: TAMSULOSIN 0.4 MG CAPSULE PO SCH (08:19)
[2017-07-21] MEDS: TICAGRELOR 90 MG TABLET PO SCH ×2 (08:19→21:40)
[2017-07-21] MEDS: ASPIRIN EC 81 MG TABLET PO SCH (08:19)
[2017-07-21] MEDS: LOSARTAN 50 MG TABLET PO SCH (08:19)
[2017-07-21] MEDS: CARVEDILOL 6.25 MG TABLET PO SCH ×2 (08:19→21:40)
[2017-07-21] MEDS: FUROSEMIDE 40 MG/4 ML VIAL IV SCH ×2 (08:19→15:50)
[2017-07-21] MEDS: ATORVASTATIN 10 MG TABLET PO SCH (21:40)
[2017-07-22] MEDS: ALBUTEROL/IPRATROPIUM 3 ML NEB RESP TX SCH ×2 (00:17→07:51)
[2017-07-22] MEDS: methylPREDNISolone SOD SUC 40 MG/1 ML VIAL IV SCH ×2 (01:48→09:48)
[2017-07-22 08:22] VITALS: BP 126/77
[2017-07-22] MEDS ORDERED: POTASSIUM CHLORIDE 20 MEQ TABLET PO ONE (09:13)
[2017-07-22] MEDS: LOSARTAN 50 MG TABLET PO SCH (09:49)
[2017-07-22] MEDS: TICAGRELOR 90 MG TABLET PO SCH (09:49)
[2017-07-22] MEDS: ASPIRIN EC 81 MG TABLET PO SCH (09:49)
[2017-07-22] MEDS: PANTOPRAZOLE 40 MG TABLET PO SCH (09:49)
[2017-07-22] MEDS: TAMSULOSIN 0.4 MG CAPSULE PO SCH (09:49)
[2017-07-22] MEDS: CARVEDILOL 6.25 MG TABLET PO SCH (09:50)
[2017-07-22] MEDS: FUROSEMIDE 40 MG/4 ML VIAL IV SCH (09:55)
== END 2017-07-22 13:15 | disposition home or self-care (01) | DRG 292 ==
LOC: EDUNIT# → N.ED 09:11 → N.EDINP 10:28 → N.TELEN 14:34
PROVIDERS: ADMIT Internal Medicine; ATTEND Internal Medicine

== ENCOUNTER 2018-05-31 10:15 | Inpatient (IN) ==
[2018-05-31] MEDS ORDERED: ASPIRIN 325 MG TABLET PO STA (10:54)
[2018-05-31 11:27] LABS: Basophils # 0.1 10*3/uL (0.0-0.2); Basophils % 0.8 % (0.0-0.8); Eosinophils # 0.3 10*3/uL (0.0-0.87); Eosinophils % 2.7 % (0.00-10.9); Hematocrit 44.7 VOL% (42.0-52.0); Hemoglobin 14.3 GM/DL (14.0-18.0); Immature Granulocytes % 0.2 %; Immature Granulocytes Absolute 0.02 #; Lymphocytes # 1.3 10*3/uL (1.4-4.0); Lymphocytes % 13.9 % (21.2-54.2); Mean Corpuscular Hemoglobin 28 PG (27-34); Mean Corpuscular Volume 86.8 FL (87-102); Mean Platelet Volume 11.6 FL (9.6-12.0); Monocytes # 0.7 10*3/uL (0.11-0.8); Monocytes % 6.7 % (1.7-12.7); Neutrophils # 7.3 10*3/uL (1.4-7.4); Neutrophils % 75.7 % (38.7-73.9); Platelet Count 193 T/CUMM (130-400); Red Blood Count 5.15 MC/CUMM (3.8-5.5); Red Cell Distribution Width 14.4 % (9.3-17.3); White Blood Count 9.7 T/CUMM (4-12)
[2018-05-31] MEDS ORDERED: FUROSEMIDE 40 MG/4 ML VIAL IV STA (11:47)
[2018-05-31 11:54] LABS: PT Patient Result 10.7 SECS
[2018-05-31] MEDS ORDERED: FUROSEMIDE 20 MG/2 ML VIAL ONE (11:57)
[2018-05-31 12:12] LABS: Albumin 3.1 G/DL (3.4-5.0); Bilirubin,Total 0.5 MG/DL (0.2-1.0); Calcium 8.4 MG/DL (8.5-10.1); Osmolality,Calculated 274.8 MOS/KG (273-304); Potassium 3.9 MMOL/L (3.5-5.1); Total Protein 7.3 G/DL (6.4-8.3)
[2018-05-31 12:47] LABS: Apearance,Urine CLEAR (Clear); Bilirubin,Urine Negative (Negative); Blood, Urine Negative (Negative); Glucose,Urine (UA) Negative (Negative); Hyaline Casts,Urine 3 /LPF (0-3); Ketones,Urine Negative (Negative); Mucus,Urine Occasional /LPF (Occasional); Nitrite,Urine Negative (Negative); Protein,Urine 30 MG/DL; RBC,Urine <1 /HPF (0-4); Squamous Epithelial Cell,Urine Occasional /HPF (0-10); Urine Color Yellow (Yellow); Urine Specific Gravity 1.005 (1.001-1.035); Urine Urobilinogen < 2.0 EU/DL (0.2-1.0)
[2018-05-31] MEDS ORDERED: ACETAMINOPHEN 325 MG TABLET PO PRN (14:30)
[2018-05-31] MEDS ORDERED: PROMETHAZINE 25 MG TABLET PO PRN (14:30)
[2018-05-31] MEDS ORDERED: diphenhydrAMINE CAP 25 MG CAPSULE PO PRN (14:30)
[2018-05-31] MEDS ORDERED: LACTULOSE 20 GM/30 ML UDCUP PO PRN (14:30)
[2018-05-31] MEDS ORDERED: ONDANSETRON 4 MG/2 ML VIAL IV PRN (14:30)
[2018-05-31] MEDS ORDERED: MORPHINE 4 MG/1 ML VIAL IV PRN (14:30)
[2018-05-31] MEDS ORDERED: POLYETHYLENE GLYCOL POWDER 17 GM PACK PO PRN (14:38)
[2018-05-31] MEDS ORDERED: MECLIZINE 25 MG TABLET PO PRN (14:38)
[2018-05-31] MEDS ORDERED: NITROGLYCERIN SL 0.4 MG TABLET SL PRN (14:38)
[2018-05-31] MEDS ORDERED: PANTOPRAZOLE 40 MG TABLET PO SCH (15:00)
[2018-05-31] MEDS ORDERED: ENOXAPARIN 40 MG/0.4 ML SYRINGE SUBCUT SCH (16:00)
[2018-05-31] MEDS: CARVEDILOL 3.125 MG TABLET PO SCH (16:53)
[2018-05-31] MEDS: PANTOPRAZOLE 40 MG TABLET PO SCH (16:54)
[2018-05-31] MEDS: DOCUSATE SODIUM 100 MG CAPSULE PO SCH ×2 (16:55→23:12)
[2018-05-31] MEDS: FUROSEMIDE 40 MG/4 ML VIAL IV SCH (17:04)
[2018-05-31] MEDS: FINASTERIDE 5 MG TABLET PO SCH (17:04)
[2018-05-31] MEDS ORDERED: FUROSEMIDE 40 MG/4 ML VIAL IV SCH (21:00)
[2018-06-01 04:53] LABS: Basophils # 0.1 10*3/uL (0.0-0.2); Basophils % 0.9 % (0.0-0.8); Eosinophils # 0.3 10*3/uL (0.0-0.87); Eosinophils % 3.5 % (0.00-10.9); Hematocrit 45.3 VOL% (42.0-52.0); Hemoglobin 14.2 GM/DL (14.0-18.0); Immature Granulocytes % 0.3 %; Immature Granulocytes Absolute 0.03 #; Lymphocytes # 1.6 10*3/uL (1.4-4.0); Lymphocytes % 16.9 % (21.2-54.2); Mean Corpuscular HGB Conc 31.3 GM/DL (32-36); Mean Corpuscular Hemoglobin 28 PG (27-34); Mean Corpuscular Volume 88.5 FL (87-102); Mean Platelet Volume 10.2 FL (9.6-12.0); Monocytes # 0.6 10*3/uL (0.11-0.8); Monocytes % 6.4 % (1.7-12.7); Neutrophils # 6.6 10*3/uL (1.4-7.4); Platelet Count 246 T/CUMM (130-400); Red Blood Count 5.12 MC/CUMM (3.8-5.5); Red Cell Distribution Width 14.3 % (9.3-17.3); White Blood Count 9.2 T/CUMM (4-12)
[2018-06-01 05:26] LABS: Albumin 3.1 G/DL (3.4-5.0); Bilirubin,Total 0.6 MG/DL (0.2-1.0); Calcium 8.7 MG/DL (8.5-10.1); Osmolality,Calculated 282.4 MOS/KG (273-304); Potassium 4.3 MMOL/L (3.5-5.1); Risk Ratio 4.07; Thyroid Stimulating Hormone 1.24 uIU/ml (0.358-3.74); Total Protein 7.5 G/DL (6.4-8.3); VLDL CHOLESTEROL 26.2 MG/DL
[2018-06-01] MEDS ORDERED: ASPIRIN EC 81 MG TABLET PO SCH (09:00)
[2018-06-01] MEDS: FUROSEMIDE 40 MG/4 ML VIAL IV SCH (09:00)
[2018-06-01] MEDS ORDERED: LOSARTAN 50 MG TABLET PO SCH (09:00)
[2018-06-01] MEDS: FINASTERIDE 5 MG TABLET PO SCH (09:00)
[2018-06-01] MEDS: PANTOPRAZOLE 40 MG TABLET PO SCH (09:01)
[2018-06-01] MEDS: DOCUSATE SODIUM 100 MG CAPSULE PO SCH (09:01)
[2018-06-01] MEDS: CARVEDILOL 3.125 MG TABLET PO SCH (09:01)
[2018-06-01 12:11] VITALS: BP 130/83
[2018-06-01] MEDS ORDERED: CARVEDILOL 6.25 MG TABLET PO SCH (17:00)
[2018-06-01] MEDS ORDERED: ATORVASTATIN 20 MG TABLET PO SCH (21:00)
== END 2018-06-01 14:17 | disposition home health service (06) | DRG 292 ==
LOC: N.ED 10:15 → N.EDINP 14:30 → N.2W 16:10 → N.2E 16:50
PROVIDERS: ADMIT Internal Medicine; ATTEND Internal Medicine

== ENCOUNTER 2018-06-12 08:27 | Inpatient (IN) ==
[2018-06-12] MEDS ORDERED: FUROSEMIDE 100 MG/10 ML VIAL IV STA (09:13)
[2018-06-12 09:35] LABS: Basophils # 0.1 10*3/uL (0.0-0.2); Basophils % 0.7 % (0.0-0.8); Eosinophils # 0.3 10*3/uL (0.0-0.87); Eosinophils % 2.7 % (0.00-10.9); Hematocrit 44.5 VOL% (42.0-52.0); Hemoglobin 13.8 GM/DL (14.0-18.0); Immature Granulocytes % 0.3 %; Immature Granulocytes Absolute 0.03 #; Lymphocytes # 1.3 10*3/uL (1.4-4.0); Mean Corpuscular Hemoglobin 27 PG (27-34); Mean Corpuscular Volume 87.6 FL (87-102); Mean Platelet Volume 9.9 FL (9.6-12.0); Monocytes # 0.6 10*3/uL (0.11-0.8); Monocytes % 5.8 % (1.7-12.7); Neutrophils # 7.2 10*3/uL (1.4-7.4); Neutrophils % 76.5 % (38.7-73.9); Platelet Count 233 T/CUMM (130-400); Red Blood Count 5.08 MC/CUMM (3.8-5.5); Red Cell Distribution Width 14.3 % (9.3-17.3); White Blood Count 9.5 T/CUMM (4-12)
[2018-06-12 09:57] LABS: Albumin 3.4 G/DL (3.4-5.0); Bilirubin,Total 0.6 MG/DL (0.2-1.0); Calcium 9.2 MG/DL (8.5-10.1); Osmolality,Calculated 283.5 MOS/KG (273-304); Potassium 4.3 MMOL/L (3.5-5.1); Total Protein 7.4 G/DL (6.4-8.3)
[2018-06-12] MEDS ORDERED: ACETAMINOPHEN 325 MG TABLET PO PRN (11:17)
[2018-06-12] MEDS ORDERED: MORPHINE 4 MG/1 ML VIAL IV PRN (11:17)
[2018-06-12] MEDS ORDERED: ONDANSETRON 4 MG/2 ML VIAL IV PRN (11:17)
[2018-06-12] MEDS: ENOXAPARIN 40 MG/0.4 ML SYRINGE SUBCUT SCH (12:29)
[2018-06-12] MEDS ORDERED: NITROGLYCERIN SL 0.4 MG TABLET SL PRN (13:07)
[2018-06-12] MEDS ORDERED: ONDANSETRON ODT 4 MG TABLET PO PRN (13:07)
[2018-06-12] MEDS ORDERED: MECLIZINE 25 MG TABLET PO PRN (13:07)
[2018-06-12] MEDS: LACTULOSE 20 GM/30 ML UDCUP PO SCH ×2 (13:50→20:35)
[2018-06-12] MEDS: amLODIPine 5 MG TABLET PO SCH (13:50)
[2018-06-12] MEDS: ALBUTEROL/IPRATROPIUM 3 ML NEB RESP TX SCH ×2 (14:39→19:11)
[2018-06-12] MEDS: CARVEDILOL 6.25 MG TABLET PO SCH (17:06)
[2018-06-12] MEDS: SIMETHICONE CHEW 125 MG TABLET PO SCH ×2 (17:06→20:35)
[2018-06-12] MEDS: FUROSEMIDE 40 MG/4 ML VIAL IV SCH (17:07)
[2018-06-12] MEDS: ATORVASTATIN 20 MG TABLET PO SCH (20:35)
[2018-06-12] MEDS: PANTOPRAZOLE 40 MG TABLET PO SCH (20:35)
[2018-06-12] MEDS: POLYETHYLENE GLYCOL POWDER 17 GM PACK PO SCH (20:37)
[2018-06-12] MEDS: DOCUSATE SODIUM 100 MG CAPSULE PO SCH (20:37)
[2018-06-13] MEDS: ALBUTEROL/IPRATROPIUM 3 ML NEB RESP TX SCH ×4 (00:04→19:32)
[2018-06-13 05:20] LABS: Basophils # 0.1 10*3/uL (0.0-0.2); Basophils % 1.1 % (0.0-0.8); Eosinophils # 0.3 10*3/uL (0.0-0.87); Eosinophils % 3.8 % (0.00-10.9); Immature Granulocytes % 0.4 %; Immature Granulocytes Absolute 0.03 #; Lymphocytes # 1.4 10*3/uL (1.4-4.0); Lymphocytes % 17.1 % (21.2-54.2); Mean Corpuscular HGB Conc 31.1 GM/DL (32-36); Mean Corpuscular Hemoglobin 27 PG (27-34); Mean Platelet Volume 10.6 FL (9.6-12.0); Monocytes # 0.5 10*3/uL (0.11-0.8); Monocytes % 6.7 % (1.7-12.7); Neutrophils # 5.6 10*3/uL (1.4-7.4); Neutrophils % 70.9 % (38.7-73.9); Platelet Count 228 T/CUMM (130-400); Red Blood Count 5.23 MC/CUMM (3.8-5.5); Red Cell Distribution Width 14.3 % (9.3-17.3)
[2018-06-13 05:21] LABS: Basophils # 0.1 10*3/uL (0.0-0.2); Eosinophils # 0.3 10*3/uL (0.0-0.87); Eosinophils % 3.3 % (0.00-10.9); Hemoglobin 13.8 GM/DL (14.0-18.0); Immature Granulocytes % 0.2 %; Immature Granulocytes Absolute 0.02 #; Lymphocytes # 1.4 10*3/uL (1.4-4.0); Lymphocytes % 16.7 % (21.2-54.2); Mean Corpuscular HGB Conc 30.7 GM/DL (32-36); Mean Corpuscular Hemoglobin 27 PG (27-34); Mean Corpuscular Volume 88.1 FL (87-102); Mean Platelet Volume 9.8 FL (9.6-12.0); Monocytes # 0.6 10*3/uL (0.11-0.8); Monocytes % 7.4 % (1.7-12.7); Neutrophils # 5.9 10*3/uL (1.4-7.4); Neutrophils % 71.4 % (38.7-73.9); Platelet Count 231 T/CUMM (130-400); Red Blood Count 5.11 MC/CUMM (3.8-5.5); Red Cell Distribution Width 14.2 % (9.3-17.3); White Blood Count 8.2 T/CUMM (4-12)
[2018-06-13 05:47] LABS: % Iron Saturation 15.9 % (18-50); Ferritin 36.2 ng/ml (26-388)
[2018-06-13 05:59] LABS: Albumin 3.1 G/DL (3.4-5.0); Osmolality,Calculated 281.4 MOS/KG (273-304); Potassium 3.8 MMOL/L (3.5-5.1); Total Protein 7.3 G/DL (6.4-8.3)
[2018-06-13 06:07] LABS: Folate 11.8 NG/ML (5.4-24.0); Vitamin B12 > 2000 PG/ML (211-911)
[2018-06-13] MEDS ORDERED: POTASSIUM CHLORIDE 20 MEQ TABLET PO PRN (07:21)
[2018-06-13 08:01] LABS: Hemoglobin A1 (Alkaline) 97.2 % (96.5-98.5); Hemoglobin A2 (Alkaline) 2.8 % (1.5-3.5)
[2018-06-13] MEDS: DOCUSATE SODIUM 100 MG CAPSULE PO SCH ×2 (08:23→21:41)
[2018-06-13] MEDS: POLYETHYLENE GLYCOL POWDER 17 GM PACK PO SCH ×2 (08:23→21:41)
[2018-06-13] MEDS ORDERED: POLYETHYLENE GLYCOL POWDER 17 GM PACK PO SCH (09:00)
[2018-06-13] MEDS ORDERED: PANTOPRAZOLE 40 MG TABLET PO SCH (09:00)
[2018-06-13] MEDS: SPIRONOLACTONE 25 MG TABLET PO SCH (09:40)
[2018-06-13] MEDS: ASPIRIN EC 81 MG TABLET PO SCH (09:40)
[2018-06-13] MEDS: FINASTERIDE 5 MG TABLET PO SCH (09:40)
[2018-06-13] MEDS: metOLazone 5 MG TABLET PO SCH (09:41)
[2018-06-13] MEDS: SIMETHICONE CHEW 125 MG TABLET PO SCH ×4 (09:41→20:50)
[2018-06-13] MEDS: PANTOPRAZOLE 40 MG TABLET PO SCH ×2 (09:42→20:51)
[2018-06-13] MEDS: FUROSEMIDE 40 MG/4 ML VIAL IV SCH ×2 (09:42→17:16)
[2018-06-13] MEDS: CARVEDILOL 6.25 MG TABLET PO SCH ×2 (09:42→17:17)
[2018-06-13] MEDS: LACTULOSE 20 GM/30 ML UDCUP PO SCH ×2 (09:43→20:51)
[2018-06-13] MEDS: ENOXAPARIN 40 MG/0.4 ML SYRINGE SUBCUT SCH (09:43)
[2018-06-13] MEDS: amLODIPine 5 MG TABLET PO SCH (09:43)
[2018-06-13 12:56] LABS: Sedimentation Rate-Westergren 20 MM/HR (0-20)
[2018-06-13] MEDS: BUDESONIDE 0.5 MG/2 ML NEB RESP TX SCH ×2 (13:05→19:37)
[2018-06-13] MEDS: CHOLECALCIFEROL 1,000 UNIT TABLET PO SCH (13:28)
[2018-06-13] MEDS: FOLIC ACID 1 MG TABLET PO SCH (13:28)
[2018-06-13] MEDS: DOXYCYCLINE HYCLATE 100 MG CAPSULE PO SCH (20:51)
[2018-06-13] MEDS: ATORVASTATIN 20 MG TABLET PO SCH (20:51)
[2018-06-14] MEDS: ALBUTEROL/IPRATROPIUM 3 ML NEB RESP TX SCH ×4 (00:50→19:24)
[2018-06-14 05:35] LABS: Basophils # 0.1 10*3/uL (0.0-0.2); Eosinophils # 0.3 10*3/uL (0.0-0.87); Eosinophils % 3.3 % (0.00-10.9); Hematocrit 47.7 VOL% (42.0-52.0); Hemoglobin 14.8 GM/DL (14.0-18.0); Immature Granulocytes % 0.3 %; Immature Granulocytes Absolute 0.03 #; Lymphocytes # 1.5 10*3/uL (1.4-4.0); Lymphocytes % 16.7 % (21.2-54.2); Mean Corpuscular Hemoglobin 27 PG (27-34); Mean Corpuscular Volume 86.6 FL (87-102); Mean Platelet Volume 10.1 FL (9.6-12.0); Monocytes # 0.7 10*3/uL (0.11-0.8); Monocytes % 8.1 % (1.7-12.7); Neutrophils # 6.5 10*3/uL (1.4-7.4); Neutrophils % 70.6 % (38.7-73.9); Platelet Count 240 T/CUMM (130-400); Red Blood Count 5.51 MC/CUMM (3.8-5.5); Red Cell Distribution Width 14.2 % (9.3-17.3); White Blood Count 9.2 T/CUMM (4-12)
[2018-06-14 05:49] LABS: Osmolality,Calculated 276.8 MOS/KG (273-304); Potassium 3.9 MMOL/L (3.5-5.1)
[2018-06-14] MEDS: BUDESONIDE 0.5 MG/2 ML NEB RESP TX SCH ×2 (07:44→19:24)
[2018-06-14] MEDS: DOXYCYCLINE HYCLATE 100 MG CAPSULE PO SCH ×2 (09:30→21:40)
[2018-06-14] MEDS: SPIRONOLACTONE 25 MG TABLET PO SCH (09:31)
[2018-06-14] MEDS: FINASTERIDE 5 MG TABLET PO SCH (09:31)
[2018-06-14] MEDS: metOLazone 5 MG TABLET PO SCH (09:31)
[2018-06-14] MEDS: CARVEDILOL 6.25 MG TABLET PO SCH ×2 (09:31→17:02)
[2018-06-14] MEDS: LACTULOSE 20 GM/30 ML UDCUP PO SCH ×2 (09:32→21:40)
[2018-06-14] MEDS: SIMETHICONE CHEW 125 MG TABLET PO SCH ×4 (09:32→21:41)
[2018-06-14] MEDS: CHOLECALCIFEROL 1,000 UNIT TABLET PO SCH (09:32)
[2018-06-14] MEDS: FOLIC ACID 1 MG TABLET PO SCH (09:32)
[2018-06-14] MEDS: FUROSEMIDE 80 MG TABLET PO SCH (09:32)
[2018-06-14] MEDS: ASPIRIN EC 81 MG TABLET PO SCH (09:32)
[2018-06-14] MEDS: PANTOPRAZOLE 40 MG TABLET PO SCH ×2 (09:32→21:40)
[2018-06-14] MEDS: ENOXAPARIN 40 MG/0.4 ML SYRINGE SUBCUT SCH (09:33)
[2018-06-14] MEDS: amLODIPine 5 MG TABLET PO SCH (09:33)
[2018-06-14] MEDS: POLYETHYLENE GLYCOL POWDER 17 GM PACK PO SCH ×2 (09:33→21:42)
[2018-06-14] MEDS: DOCUSATE SODIUM 100 MG CAPSULE PO SCH ×2 (09:34→21:49)
[2018-06-14] MEDS: methylPREDNISolone SOD SUC 40 MG/1 ML VIAL IV SCH ×2 (09:34→21:42)
[2018-06-14] MEDS: ATORVASTATIN 20 MG TABLET PO SCH (21:40)
[2018-06-15] MEDS: ALBUTEROL/IPRATROPIUM 3 ML NEB RESP TX SCH ×2 (00:44→07:35)
[2018-06-15 04:19] LABS: Basophils % 0.1 % (0.0-0.8); Hematocrit 46.4 VOL% (42.0-52.0); Hemoglobin 14.7 GM/DL (14.0-18.0); Immature Granulocytes % 0.5 %; Immature Granulocytes Absolute 0.06 #; Lymphocytes # 0.5 10*3/uL (1.4-4.0); Lymphocytes % 4.3 % (21.2-54.2); Mean Corpuscular HGB Conc 31.7 GM/DL (32-36); Mean Corpuscular Hemoglobin 27 PG (27-34); Mean Corpuscular Volume 86.1 FL (87-102); Mean Platelet Volume 9.7 FL (9.6-12.0); Monocytes # 0.1 10*3/uL (0.11-0.8); Neutrophils # 10.6 10*3/uL (1.4-7.4); Neutrophils % 94.1 % (38.7-73.9); Platelet Count 246 T/CUMM (130-400); Red Blood Count 5.39 MC/CUMM (3.8-5.5); Red Cell Distribution Width 13.8 % (9.3-17.3); White Blood Count 11.3 T/CUMM (4-12)
[2018-06-15 04:36] LABS: Calcium 9.1 MG/DL (8.5-10.1); Osmolality,Calculated 277.5 MOS/KG (273-304); Potassium 3.7 MMOL/L (3.5-5.1)
[2018-06-15 04:52] LABS: Lymphocytes 5 % (20-55); Platelet Estimate Normal; Segmented Neutrophils 94 % (50-85); Total Cells Counted 100
[2018-06-15] MEDS: BUDESONIDE 0.5 MG/2 ML NEB RESP TX SCH (07:35)
[2018-06-15 08:13] VITALS: BP 151/73
[2018-06-15] MEDS: ENOXAPARIN 40 MG/0.4 ML SYRINGE SUBCUT SCH (09:31)
[2018-06-15] MEDS: POLYETHYLENE GLYCOL POWDER 17 GM PACK PO SCH (09:31)
[2018-06-15] MEDS: DOXYCYCLINE HYCLATE 100 MG CAPSULE PO SCH (09:31)
[2018-06-15] MEDS: LACTULOSE 20 GM/30 ML UDCUP PO SCH (09:32)
[2018-06-15] MEDS: SIMETHICONE CHEW 125 MG TABLET PO SCH (09:32)
[2018-06-15] MEDS: CHOLECALCIFEROL 1,000 UNIT TABLET PO SCH (09:32)
[2018-06-15] MEDS: PANTOPRAZOLE 40 MG TABLET PO SCH (09:33)
[2018-06-15] MEDS: amLODIPine 5 MG TABLET PO SCH (09:33)
[2018-06-15] MEDS: metOLazone 5 MG TABLET PO SCH (09:33)
[2018-06-15] MEDS: ASPIRIN EC 81 MG TABLET PO SCH (09:33)
[2018-06-15] MEDS: CARVEDILOL 6.25 MG TABLET PO SCH (09:34)
[2018-06-15] MEDS: FINASTERIDE 5 MG TABLET PO SCH (09:34)
[2018-06-15] MEDS: FUROSEMIDE 80 MG TABLET PO SCH (09:34)
[2018-06-15] MEDS: DOCUSATE SODIUM 100 MG CAPSULE PO SCH (09:34)
[2018-06-15] MEDS: SPIRONOLACTONE 25 MG TABLET PO SCH (09:34)
[2018-06-15] MEDS: FOLIC ACID 1 MG TABLET PO SCH (09:34)
[2018-06-15] MEDS: methylPREDNISolone SOD SUC 40 MG/1 ML VIAL IV SCH (09:35)
[2018-06-15] MEDS ORDERED: BUDESONIDE/FORMOTEROL 160-4.5 INHALER 6 GM INH SCH (10:30)
== END 2018-06-15 11:20 | disposition home or self-care (01) | DRG 291 ==
LOC: N.ED 08:27 → N.EDINP 11:18 → N.2W 11:50 → N.2E 13:17
PROVIDERS: ADMIT Hospitalist; ATTEND Hospitalist

== ENCOUNTER 2018-08-07 20:01 | Observation (INO) ==
[2018-08-07 20:50] LABS: Basophils # 0.1 10*3/uL (0.0-0.2); Basophils % 0.8 % (0.0-0.8); Eosinophils # 0.2 10*3/uL (0.0-0.87); Hematocrit 43.4 VOL% (42.0-52.0); Hemoglobin 13.4 GM/DL (14.0-18.0); Immature Granulocytes % 0.2 %; Immature Granulocytes Absolute 0.02 #; Lymphocytes # 1.1 10*3/uL (1.4-4.0); Lymphocytes % 13.6 % (21.2-54.2); Mean Corpuscular HGB Conc 30.9 GM/DL (32-36); Mean Corpuscular Hemoglobin 26 PG (27-34); Mean Corpuscular Volume 84.9 FL (87-102); Mean Platelet Volume 10.1 FL (9.6-12.0); Monocytes # 0.5 10*3/uL (0.11-0.8); Monocytes % 5.5 % (1.7-12.7); Neutrophils # 6.5 10*3/uL (1.4-7.4); Neutrophils % 77.9 % (38.7-73.9); Platelet Count 194 T/CUMM (130-400); Red Blood Count 5.11 MC/CUMM (3.8-5.5); Red Cell Distribution Width 15.9 % (9.3-17.3); White Blood Count 8.3 T/CUMM (4-12)
[2018-08-07 21:11] LABS: Albumin 2.9 G/DL (3.4-5.0); Bilirubin,Total 1.1 MG/DL (0.2-1.0); Calcium 8.7 MG/DL (8.5-10.1); Osmolality,Calculated 276.8 MOS/KG (273-304); Potassium 3.8 MMOL/L (3.5-5.1)
[2018-08-07 21:24] LABS: INR 1.1; PT Patient Result 11.4 SECS
[2018-08-07] MEDS ORDERED: ONDANSETRON 4 MG/2 ML VIAL IV STA ×2 (23:37→23:48)
[2018-08-07] MEDS ORDERED: ONDANSETRON 4 MG/2 ML VIAL ONE (23:37)
[2018-08-07] MEDS ORDERED: FUROSEMIDE 40 MG/4 ML VIAL IV STA (23:48)
[2018-08-08] MEDS ORDERED: MECLIZINE 25 MG TABLET PO STA (00:33)
[2018-08-08] MEDS ORDERED: diphenhydrAMINE 50 MG/1 ML VIAL IV STA (00:33)
[2018-08-08] MEDS ORDERED: METOCLOPRAMIDE 10 MG/2 ML VIAL IV STA (00:33)
[2018-08-08] MEDS ORDERED: ACETAMINOPHEN 325 MG TABLET PO PRN (03:15)
[2018-08-08] MEDS ORDERED: ONDANSETRON 4 MG/2 ML VIAL IV PRN (03:15)
[2018-08-08] MEDS ORDERED: ONDANSETRON ODT 4 MG TABLET PO PRN (03:20)
[2018-08-08] MEDS ORDERED: LACTULOSE 20 GM/30 ML UDCUP PO PRN (03:20)
[2018-08-08] MEDS ORDERED: NITROGLYCERIN SL 0.4 MG TABLET SL PRN (03:20)
[2018-08-08] MEDS ORDERED: MECLIZINE 25 MG TABLET PO PRN (03:20)
[2018-08-08] MEDS ORDERED: PANTOPRAZOLE 40 MG TABLET PO SCH (09:00)
[2018-08-08] MEDS ORDERED: DOXYCYCLINE HYCLATE 100 MG CAPSULE PO SCH (09:00)
[2018-08-08] MEDS: SPIRONOLACTONE 25 MG TABLET PO SCH (10:01)
[2018-08-08] MEDS: CARVEDILOL 6.25 MG TABLET PO SCH ×2 (10:01→17:18)
[2018-08-08] MEDS: ASPIRIN EC 81 MG TABLET PO SCH (10:01)
[2018-08-08] MEDS: LOSARTAN 25 MG TABLET PO SCH ×2 (10:02→21:40)
[2018-08-08] MEDS: DOCUSATE SODIUM 100 MG CAPSULE PO SCH ×2 (10:02→21:55)
[2018-08-08] MEDS: FOLIC ACID 1 MG TABLET PO SCH (10:02)
[2018-08-08] MEDS: FUROSEMIDE 80 MG TABLET PO SCH (10:02)
[2018-08-08] MEDS: POLYETHYLENE GLYCOL POWDER 17 GM PACK PO SCH ×2 (10:02→21:56)
[2018-08-08] MEDS: amLODIPine 5 MG TABLET PO SCH (10:02)
[2018-08-08] MEDS: SIMETHICONE CHEW 125 MG TABLET PO SCH ×4 (10:02→21:56)
[2018-08-08] MEDS: BUDESONIDE/FORMOTEROL 160-4.5 INHALER 6 GM INH SCH ×2 (10:03→20:36)
[2018-08-08] MEDS: FINASTERIDE 5 MG TABLET PO SCH (10:03)
[2018-08-08] MEDS: CHOLECALCIFEROL 1,000 UNIT TABLET PO SCH (10:03)
[2018-08-08] MEDS: PANTOPRAZOLE 40 MG TABLET PO SCH ×2 (10:03→21:41)
[2018-08-08] MEDS: metOLazone 5 MG TABLET PO SCH (10:03)
[2018-08-08] MEDS ORDERED: ATORVASTATIN 20 MG TABLET PO SCH (21:00)
[2018-08-09 05:45] LABS: Basophils # 0.1 10*3/uL (0.0-0.2); Basophils % 0.7 % (0.0-0.8); Eosinophils # 0.2 10*3/uL (0.0-0.87); Eosinophils % 2.1 % (0.00-10.9); Hematocrit 41.6 VOL% (42.0-52.0); Hemoglobin 12.7 GM/DL (14.0-18.0); Immature Granulocytes % 0.2 %; Immature Granulocytes Absolute 0.02 #; Lymphocytes # 1.3 10*3/uL (1.4-4.0); Lymphocytes % 12.9 % (21.2-54.2); Mean Corpuscular HGB Conc 30.5 GM/DL (32-36); Mean Corpuscular Hemoglobin 26 PG (27-34); Mean Corpuscular Volume 84.9 FL (87-102); Mean Platelet Volume 10.9 FL (9.6-12.0); Monocytes # 0.7 10*3/uL (0.11-0.8); Monocytes % 6.7 % (1.7-12.7); Neutrophils # 7.9 10*3/uL (1.4-7.4); Neutrophils % 77.4 % (38.7-73.9); Platelet Count 189 T/CUMM (130-400); Red Cell Distribution Width 15.9 % (9.3-17.3); White Blood Count 10.2 T/CUMM (4-12)
[2018-08-09 06:58] LABS: Albumin 3.1 G/DL (3.4-5.0); Bilirubin,Total 1.6 MG/DL (0.2-1.0); Calcium 8.8 MG/DL (8.5-10.1); Potassium 3.4 MMOL/L (3.5-5.1); Total Protein 6.7 G/DL (6.4-8.3)
[2018-08-09] MEDS: POLYETHYLENE GLYCOL POWDER 17 GM PACK PO SCH (08:07)
[2018-08-09] MEDS: metOLazone 5 MG TABLET PO SCH (08:07)
[2018-08-09] MEDS: amLODIPine 5 MG TABLET PO SCH (08:07)
[2018-08-09] MEDS: FINASTERIDE 5 MG TABLET PO SCH (08:07)
[2018-08-09] MEDS: DOCUSATE SODIUM 100 MG CAPSULE PO SCH (08:07)
[2018-08-09] MEDS: FUROSEMIDE 80 MG TABLET PO SCH (08:07)
[2018-08-09] MEDS: LOSARTAN 25 MG TABLET PO SCH (08:07)
[2018-08-09] MEDS: SPIRONOLACTONE 25 MG TABLET PO SCH (08:07)
[2018-08-09] MEDS: SIMETHICONE CHEW 125 MG TABLET PO SCH ×2 (08:07→13:00)
[2018-08-09] MEDS: CARVEDILOL 6.25 MG TABLET PO SCH (08:07)
[2018-08-09] MEDS: ASPIRIN EC 81 MG TABLET PO SCH (08:07)
[2018-08-09] MEDS: FOLIC ACID 1 MG TABLET PO SCH (08:07)
[2018-08-09] MEDS: BUDESONIDE/FORMOTEROL 160-4.5 INHALER 6 GM INH SCH (08:07)
[2018-08-09] MEDS: CHOLECALCIFEROL 1,000 UNIT TABLET PO SCH (08:07)
[2018-08-09] MEDS: PANTOPRAZOLE 40 MG TABLET PO SCH (09:09)
[2018-08-09 12:44] VITALS: BP 141/74
[2018-08-09] MEDS ORDERED: PANTOPRAZOLE 40 MG VIAL IV SCH (21:00)
== END 2018-08-09 16:30 | disposition home or self-care (01) ==
LOC: N.ED 20:01 → N.EDINP 20:01 → SUATTDRO 08-08 03:15 → N.3E 08-08 04:09
PROVIDERS: ADMIT Emergency Medicine; ATTEND Emergency Medicine

== ENCOUNTER 2018-09-17 14:31 | Inpatient (IN) ==
[2018-09-17 15:21] LABS: Basophils # 0.1 10*3/uL (0.0-0.2); Basophils % 0.8 % (0.0-0.8); Eosinophils # 0.3 10*3/uL (0.0-0.87); Eosinophils % 2.6 % (0.00-10.9); Hematocrit 43.6 VOL% (42.0-52.0); Hemoglobin 13.2 GM/DL (14.0-18.0); Immature Granulocytes % 0.4 %; Immature Granulocytes Absolute 0.04 #; Lymphocytes # 1.2 10*3/uL (1.4-4.0); Lymphocytes % 11.7 % (21.2-54.2); Mean Corpuscular HGB Conc 30.3 GM/DL (32-36); Mean Corpuscular Hemoglobin 25 PG (27-34); Monocytes # 0.6 10*3/uL (0.11-0.8); Monocytes % 5.9 % (1.7-12.7); Neutrophils # 8.1 10*3/uL (1.4-7.4); Neutrophils % 78.6 % (38.7-73.9); Platelet Count 222 T/CUMM (130-400); Red Blood Count 5.19 MC/CUMM (3.8-5.5); Red Cell Distribution Width 17.1 % (9.3-17.3); White Blood Count 10.3 T/CUMM (4-12)
[2018-09-17 15:27] LABS: INR 1.1; PT Patient Result 12.1 SECS
[2018-09-17 15:37] LABS: Alanine Aminotransferase 18 U/L (16-61); Albumin 3.2 G/DL (3.4-5.0); Alkaline Phosphatase 127 U/L (45-117); Amylase 33 U/L (25-115); Aspartate Amino Transferase 20 U/L (0-37); Blood Urea Nitrogen 30 MG/DL (7-18); Calcium 8.4 MG/DL (8.5-10.1); Glucose 135 MG/DL (74-106); Osmolality,Calculated 280.8 MOS/KG (273-304); Potassium 3.7 MMOL/L (3.5-5.1); Sodium 137 MMOL/L (136-145); Total Protein 7.2 G/DL (6.4-8.3)
[2018-09-17 15:38] LABS: Troponin I 0.077 NG/ML (0.00-0.045)
[2018-09-17 16:17] LABS: Apearance,Urine CLEAR (Clear); Bilirubin,Urine Negative (Negative); Blood, Urine Negative (Negative); Glucose,Urine (UA) Negative (Negative); Hyaline Casts,Urine 11 /LPF (0-3); Ketones,Urine Negative (Negative); Mucus,Urine Occasional /LPF (Occasional); Nitrite,Urine Negative (Negative); Protein,Urine 100 MG/DL; RBC,Urine 1 /HPF (0-4); Squamous Epithelial Cell,Urine Occasional /HPF (0-10); Urine Color Yellow (Yellow); Urine Specific Gravity 1.021 (1.001-1.035); WBC,Urine 1 /HPF (0-6)
[2018-09-17] MEDS ORDERED: FUROSEMIDE 40 MG/4 ML VIAL IV STA (16:22)
[2018-09-17] MEDS ORDERED: NITROGLYCERIN SL 0.4 MG TABLET SL PRN (17:30)
[2018-09-17] MEDS ORDERED: MECLIZINE 25 MG TABLET PO PRN (17:30)
[2018-09-17] MEDS ORDERED: ONDANSETRON 4 MG TABLET PO PRN (17:30)
[2018-09-17] MEDS ORDERED: ACETAMINOPHEN 500 MG TABLET PO PRN (17:30)
[2018-09-17] MEDS ORDERED: LACTULOSE 20 GM/30 ML UDCUP PO PRN (17:30)
[2018-09-17] MEDS ORDERED: ONDANSETRON 4 MG/2 ML VIAL IV PRN (17:36)
[2018-09-17] MEDS ORDERED: MAGNESIUM SULF RIDER 4 GM in PREMIX 1 EACH IV PRN (18:05)
[2018-09-17] MEDS ORDERED: MAGNESIUM SULF RIDER 2 GM in PREMIX 1 EACH IV PRN (18:05)
[2018-09-17] MEDS: POLYETHYLENE GLYCOL POWDER 17 GM PACK PO SCH ×2 (21:19→21:32)
[2018-09-17] MEDS: ENOXAPARIN 40 MG/0.4 ML SYRINGE SUBCUT SCH (21:19)
[2018-09-17] MEDS: PANTOPRAZOLE 40 MG TABLET PO SCH ×2 (21:19→21:32)
[2018-09-17] MEDS: LOSARTAN 50 MG TABLET PO SCH ×2 (21:19→21:32)
[2018-09-17] MEDS: TAMSULOSIN 0.4 MG CAPSULE PO SCH ×2 (21:19→21:32)
[2018-09-17] MEDS: ALBUTEROL 2.5 MG/3 ML NEB RESP TX PRN (22:45)
[2018-09-18 04:40] LABS: Basophils # 0.1 10*3/uL (0.0-0.2); Basophils % 0.9 % (0.0-0.8); Eosinophils # 0.2 10*3/uL (0.0-0.87); Eosinophils % 1.9 % (0.00-10.9); Hematocrit 44.6 VOL% (42.0-52.0); Hemoglobin 13.4 GM/DL (14.0-18.0); Immature Granulocytes % 0.4 %; Immature Granulocytes Absolute 0.04 #; Lymphocytes % 11.4 % (21.2-54.2); Mean Corpuscular Hemoglobin 25 PG (27-34); Mean Corpuscular Volume 84.5 FL (87-102); Mean Platelet Volume 11.6 FL (9.6-12.0); Monocytes # 0.5 10*3/uL (0.11-0.8); Monocytes % 5.1 % (1.7-12.7); Neutrophils # 7.4 10*3/uL (1.4-7.4); Neutrophils % 80.3 % (38.7-73.9); Platelet Count 212 T/CUMM (130-400); Red Blood Count 5.28 MC/CUMM (3.8-5.5); White Blood Count 9.2 T/CUMM (4-12)
[2018-09-18 04:56] LABS: Calcium 8.7 MG/DL (8.5-10.1); Osmolality,Calculated 278.8 MOS/KG (273-304); Potassium 3.7 MMOL/L (3.5-5.1); Risk Ratio 3.38; Thyroid Stimulating Hormone 2.3 uIU/ml (0.358-3.74); VLDL CHOLESTEROL 15.2 MG/DL
[2018-09-18] MEDS: FUROSEMIDE 40 MG/4 ML VIAL IV SCH ×2 (08:59→17:11)
[2018-09-18] MEDS: PANTOPRAZOLE 40 MG TABLET PO SCH ×2 (08:59→21:24)
[2018-09-18] MEDS: TAMSULOSIN 0.4 MG CAPSULE PO SCH ×2 (08:59→21:23)
[2018-09-18] MEDS: CARVEDILOL 6.25 MG TABLET PO SCH ×2 (08:59→17:11)
[2018-09-18] MEDS: ASPIRIN EC 81 MG TABLET PO SCH (08:59)
[2018-09-18] MEDS ORDERED: FUROSEMIDE 40 MG/4 ML VIAL IV SCH (09:00)
[2018-09-18] MEDS: POLYETHYLENE GLYCOL POWDER 17 GM PACK PO SCH ×2 (09:00→21:23)
[2018-09-18] MEDS: ALBUTEROL 2.5 MG/3 ML NEB RESP TX PRN (20:16)
[2018-09-18] MEDS: ENOXAPARIN 40 MG/0.4 ML SYRINGE SUBCUT SCH (21:22)
[2018-09-18] MEDS: LOSARTAN 50 MG TABLET PO SCH (21:23)
[2018-09-19] MEDS: POLYETHYLENE GLYCOL POWDER 17 GM PACK PO SCH ×3 (00:15→21:28)
[2018-09-19] MEDS: FUROSEMIDE 40 MG/4 ML VIAL IV SCH ×2 (09:30→17:00)
[2018-09-19] MEDS: CARVEDILOL 6.25 MG TABLET PO SCH (09:30)
[2018-09-19] MEDS: PANTOPRAZOLE 40 MG TABLET PO SCH ×2 (09:30→21:26)
[2018-09-19] MEDS: TAMSULOSIN 0.4 MG CAPSULE PO SCH ×2 (09:30→21:28)
[2018-09-19] MEDS: ASPIRIN EC 81 MG TABLET PO SCH (09:30)
[2018-09-19] MEDS: ALBUTEROL 2.5 MG/3 ML NEB RESP TX PRN (14:06)
[2018-09-19] MEDS: CARVEDILOL 12.5 MG TABLET PO SCH (16:59)
[2018-09-19] MEDS: ENOXAPARIN 40 MG/0.4 ML SYRINGE SUBCUT SCH (21:17)
[2018-09-19] MEDS: LOSARTAN 50 MG TABLET PO SCH (21:26)
[2018-09-20] MEDS: ALBUTEROL 2.5 MG/3 ML NEB RESP TX PRN ×2 (03:00→19:58)
[2018-09-20 04:20] LABS: Calcium 8.5 MG/DL (8.5-10.1); Osmolality,Calculated 282.7 MOS/KG (273-304); Potassium 3.5 MMOL/L (3.5-5.1)
[2018-09-20 04:29] LABS: Basophils # 0.1 10*3/uL (0.0-0.2); Basophils % 0.8 % (0.0-0.8); Eosinophils # 0.3 10*3/uL (0.0-0.87); Eosinophils % 4.2 % (0.00-10.9); Hematocrit 43.1 VOL% (42.0-52.0); Hemoglobin 12.6 GM/DL (14.0-18.0); Immature Granulocytes % 0.4 %; Immature Granulocytes Absolute 0.03 #; Lymphocytes % 14.1 % (21.2-54.2); Mean Corpuscular HGB Conc 29.2 GM/DL (32-36); Mean Corpuscular Hemoglobin 25 PG (27-34); Mean Corpuscular Volume 86.5 FL (87-102); Mean Platelet Volume 11.2 FL (9.6-12.0); Monocytes # 0.5 10*3/uL (0.11-0.8); Monocytes % 7.1 % (1.7-12.7); Neutrophils # 5.4 10*3/uL (1.4-7.4); Neutrophils % 73.4 % (38.7-73.9); Platelet Count 195 T/CUMM (130-400); Red Blood Count 4.98 MC/CUMM (3.8-5.5); Red Cell Distribution Width 16.9 % (9.3-17.3); White Blood Count 7.3 T/CUMM (4-12)
[2018-09-20] MEDS ORDERED: metOLazone 5 MG TABLET PO SCH (09:00)
[2018-09-20] MEDS ORDERED: POTASSIUM CHLORIDE 20 MEQ TABLET PO SCH (09:00)
[2018-09-20] MEDS: CARVEDILOL 12.5 MG TABLET PO SCH ×2 (09:35→16:06)
[2018-09-20] MEDS: ASPIRIN EC 81 MG TABLET PO SCH (09:35)
[2018-09-20] MEDS: AMIODARONE 200 MG TABLET PO SCH (09:35)
[2018-09-20] MEDS: FUROSEMIDE 40 MG/4 ML VIAL IV SCH ×2 (09:35→16:06)
[2018-09-20] MEDS: PANTOPRAZOLE 40 MG TABLET PO SCH ×2 (09:36→21:17)
[2018-09-20] MEDS: TAMSULOSIN 0.4 MG CAPSULE PO SCH ×2 (09:36→21:18)
[2018-09-20] MEDS: POLYETHYLENE GLYCOL POWDER 17 GM PACK PO SCH ×2 (09:41→21:18)
[2018-09-20] MEDS: MAGNESIUM CHLORIDE 64 MG TABLET PO SCH ×2 (12:56→21:18)
[2018-09-20 13:19] LABS: Troponin I 0.062 NG/ML (0.00-0.045)
[2018-09-20 17:16] LABS: Troponin I 0.054 NG/ML (0.00-0.045)
[2018-09-20 18:33] LABS: Folate 13.7 NG/ML (5.4-24.0)
[2018-09-20] MEDS ORDERED: ZALEPLON 5 MG CAPSULE PO PRN (20:07)
[2018-09-20 20:11] LABS: Troponin I 0.056 NG/ML (0.00-0.045)
[2018-09-20] MEDS: LOSARTAN 50 MG TABLET PO SCH (21:17)
[2018-09-20] MEDS: ENOXAPARIN 40 MG/0.4 ML SYRINGE SUBCUT SCH (21:18)
[2018-09-21 03:57] LABS: Basophils # 0.1 10*3/uL (0.0-0.2); Eosinophils # 0.4 10*3/uL (0.0-0.87); Eosinophils % 5.1 % (0.00-10.9); Hematocrit 40.5 VOL% (42.0-52.0); Hemoglobin 12.2 GM/DL (14.0-18.0); Immature Granulocytes % 0.1 %; Immature Granulocytes Absolute 0.01 #; Lymphocytes # 1.2 10*3/uL (1.4-4.0); Lymphocytes % 16.4 % (21.2-54.2); Mean Corpuscular HGB Conc 30.1 GM/DL (32-36); Mean Corpuscular Hemoglobin 25 PG (27-34); Mean Corpuscular Volume 84.2 FL (87-102); Mean Platelet Volume 10.9 FL (9.6-12.0); Monocytes # 0.5 10*3/uL (0.11-0.8); Monocytes % 7.1 % (1.7-12.7); Neutrophils # 4.9 10*3/uL (1.4-7.4); Neutrophils % 70.3 % (38.7-73.9); Platelet Count 189 T/CUMM (130-400); Red Blood Count 4.81 MC/CUMM (3.8-5.5); Red Cell Distribution Width 16.6 % (9.3-17.3)
[2018-09-21] MEDS: ALBUTEROL 2.5 MG/3 ML NEB RESP TX PRN (04:02)
[2018-09-21 04:21] LABS: Calcium 8.5 MG/DL (8.5-10.1); Osmolality,Calculated 279.8 MOS/KG (273-304); Potassium 3.3 MMOL/L (3.5-5.1)
[2018-09-21] MEDS: MAGNESIUM CHLORIDE 64 MG TABLET PO SCH ×2 (09:47→21:33)
[2018-09-21] MEDS: TAMSULOSIN 0.4 MG CAPSULE PO SCH ×2 (09:47→21:32)
[2018-09-21] MEDS: POTASSIUM CHLORIDE 20 MEQ TABLET PO SCH ×2 (09:47→21:32)
[2018-09-21] MEDS: CARVEDILOL 12.5 MG TABLET PO SCH ×2 (09:47→17:00)
[2018-09-21] MEDS: AMIODARONE 200 MG TABLET PO SCH (09:47)
[2018-09-21] MEDS: PANTOPRAZOLE 40 MG TABLET PO SCH ×2 (09:47→21:33)
[2018-09-21] MEDS: ASPIRIN EC 81 MG TABLET PO SCH (09:47)
[2018-09-21] MEDS: POTASSIUM CHLORIDE 20 MEQ TABLET PO PRN ×4 (09:48→21:44)
[2018-09-21] MEDS: POLYETHYLENE GLYCOL POWDER 17 GM PACK PO SCH ×2 (09:48→21:35)
[2018-09-21] MEDS: FUROSEMIDE 40 MG/4 ML VIAL IV SCH ×2 (09:50→17:54)
[2018-09-21] MEDS: metOLazone 5 MG TABLET PO SCH (09:50)
[2018-09-21] MEDS: LOSARTAN 50 MG TABLET PO SCH (21:32)
[2018-09-21] MEDS: ENOXAPARIN 40 MG/0.4 ML SYRINGE SUBCUT SCH (21:33)
[2018-09-22] MEDS: ALBUTEROL 2.5 MG/3 ML NEB RESP TX PRN (02:12)
[2018-09-22 05:13] LABS: Basophils # 0.1 10*3/uL (0.0-0.2); Basophils % 0.8 % (0.0-0.8); Eosinophils # 0.4 10*3/uL (0.0-0.87); Eosinophils % 6.1 % (0.00-10.9); Hematocrit 40.3 VOL% (42.0-52.0); Hemoglobin 12.1 GM/DL (14.0-18.0); Immature Granulocytes % 0.3 %; Immature Granulocytes Absolute 0.02 #; Lymphocytes # 1.2 10*3/uL (1.4-4.0); Mean Corpuscular Hemoglobin 25 PG (27-34); Mean Corpuscular Volume 84.1 FL (87-102); Mean Platelet Volume 11.1 FL (9.6-12.0); Monocytes # 0.6 10*3/uL (0.11-0.8); Monocytes % 7.8 % (1.7-12.7); Platelet Count 191 T/CUMM (130-400); Red Blood Count 4.79 MC/CUMM (3.8-5.5); Red Cell Distribution Width 16.7 % (9.3-17.3); White Blood Count 7.2 T/CUMM (4-12)
[2018-09-22 05:36] LABS: Calcium 8.2 MG/DL (8.5-10.1); Osmolality,Calculated 276.1 MOS/KG (273-304); Potassium 3.8 MMOL/L (3.5-5.1)
[2018-09-22] MEDS: PANTOPRAZOLE 40 MG TABLET PO SCH (10:18)
[2018-09-22] MEDS: TAMSULOSIN 0.4 MG CAPSULE PO SCH (10:19)
[2018-09-22] MEDS: MAGNESIUM CHLORIDE 64 MG TABLET PO SCH (10:19)
[2018-09-22] MEDS: AMIODARONE 200 MG TABLET PO SCH (10:19)
[2018-09-22] MEDS: POTASSIUM CHLORIDE 20 MEQ TABLET PO SCH (10:20)
[2018-09-22] MEDS: ASPIRIN EC 81 MG TABLET PO SCH (10:20)
[2018-09-22] MEDS: metOLazone 5 MG TABLET PO SCH (10:20)
[2018-09-22] MEDS: FUROSEMIDE 40 MG/4 ML VIAL IV SCH (10:21)
[2018-09-22] MEDS: CARVEDILOL 12.5 MG TABLET PO SCH (10:21)
[2018-09-22] MEDS: POLYETHYLENE GLYCOL POWDER 17 GM PACK PO SCH (11:53)
[2018-09-22 11:57] VITALS: BP 118/74
[2018-09-22] MEDS ORDERED: AMIODARONE 200 MG TABLET PO SCH (12:56)
[2018-09-22] MEDS ORDERED: POTASSIUM CHLORIDE 20 MEQ TABLET PO ONE (13:14)
[2018-09-23] MEDS ORDERED: AMIODARONE 200 MG TABLET PO SCH (09:00)
== END 2018-09-22 15:19 | disposition home or self-care (01) | DRG 308 ==
LOC: N.ED 14:31 → N.EDINP 17:36 → SUATTDRO 17:36 → N.TELEN 18:27
PROVIDERS: ADMIT Internal Medicine; ATTEND Internal Medicine

== ENCOUNTER 2018-10-25 06:25 | Inpatient (IN) ==
[2018-10-25] MEDS ORDERED: ONDANSETRON 4 MG/2 ML VIAL IV PRN (08:21)
[2018-10-25] MEDS ORDERED: ACETAMINOPHEN 325 MG TABLET PO PRN (08:21)
[2018-10-25] MEDS ORDERED: LACTULOSE 20 GM/30 ML UDCUP PO PRN (08:24)
[2018-10-25] MEDS ORDERED: NITROGLYCERIN SL 0.4 MG TABLET SL PRN (08:24)
[2018-10-25] MEDS ORDERED: ALBUTEROL 2.5 MG/3 ML NEB RESP TX PRN (08:24)
[2018-10-25] MEDS: ASPIRIN EC 81 MG TABLET PO SCH (09:12)
[2018-10-25] MEDS: AMIODARONE 200 MG TABLET PO SCH (09:12)
[2018-10-25] MEDS: PANTOPRAZOLE 40 MG TABLET PO SCH (09:12)
[2018-10-25] MEDS: FUROSEMIDE 100 MG/10 ML VIAL IV SCH ×2 (09:13→15:39)
[2018-10-25] MEDS: MEROPENEM 1,000 MG in SODIUM CHLORIDE 0.9% 100 ML IV SCH ×2 (10:01→17:02)
[2018-10-25] MEDS: methylPREDNISolone SOD SUC 40 MG/1 ML VIAL IV SCH ×2 (10:01→17:02)
[2018-10-25] MEDS: ALBUTEROL/IPRATROPIUM 3 ML NEB RESP TX SCH ×2 (12:38→18:54)
[2018-10-26] MEDS: ALBUTEROL/IPRATROPIUM 3 ML NEB RESP TX SCH ×4 (00:51→19:48)
[2018-10-26] MEDS: MEROPENEM 1,000 MG in SODIUM CHLORIDE 0.9% 100 ML IV SCH ×3 (02:03→19:29)
[2018-10-26] MEDS: methylPREDNISolone SOD SUC 40 MG/1 ML VIAL IV SCH ×2 (02:04→15:08)
[2018-10-26 04:10] LABS: Basophils % 0.1 % (0.0-0.8); Hematocrit 38.5 VOL% (42.0-52.0); Hemoglobin 11.8 GM/DL (14.0-18.0); Immature Granulocytes % 0.6 %; Immature Granulocytes Absolute 0.04 #; Lymphocytes # 0.4 10*3/uL (1.4-4.0); Lymphocytes % 6.2 % (21.2-54.2); Mean Corpuscular HGB Conc 30.6 GM/DL (32-36); Mean Corpuscular Hemoglobin 25 PG (27-34); Mean Corpuscular Volume 81.4 FL (87-102); Mean Platelet Volume 10.6 FL (9.6-12.0); Monocytes # 0.1 10*3/uL (0.11-0.8); Monocytes % 1.4 % (1.7-12.7); Neutrophils # 6.4 10*3/uL (1.4-7.4); Neutrophils % 91.7 % (38.7-73.9); Platelet Count 279 T/CUMM (130-400); Red Blood Count 4.73 MC/CUMM (3.8-5.5); Red Cell Distribution Width 16.2 % (9.3-17.3); White Blood Count 6.9 T/CUMM (4-12)
[2018-10-26 04:34] LABS: Albumin 2.6 G/DL (3.4-5.0); Bilirubin,Total 0.8 MG/DL (0.2-1.0); Calcium 8.8 MG/DL (8.5-10.1); Osmolality,Calculated 274.2 MOS/KG (273-304); Potassium 3.8 MMOL/L (3.5-5.1); Total Protein 7.1 G/DL (6.4-8.3); Troponin I 0.04 NG/ML (0.00-0.045)
[2018-10-26 04:54] LABS: Anisocytosis Slight; Lymphocytes 5 % (20-55); Nucleated Red Blood Cells 1 (0-5); Segmented Neutrophils 95 % (50-85); Total Cells Counted 100
[2018-10-26 04:55] LABS: Microcytosis Slight; Ovalocytes Slight
[2018-10-26 04:57] LABS: Hypochromasia Slight; Platelet Estimate Normal
[2018-10-26] MEDS: PANTOPRAZOLE 40 MG TABLET PO SCH (08:13)
[2018-10-26] MEDS: FUROSEMIDE 100 MG/10 ML VIAL IV SCH (08:13)
[2018-10-26] MEDS: AMIODARONE 200 MG TABLET PO SCH (08:13)
[2018-10-26] MEDS: ASPIRIN EC 81 MG TABLET PO SCH (08:13)
[2018-10-26] MEDS ORDERED: CARVEDILOL 6.25 MG TABLET PO SCH (09:17)
[2018-10-26] MEDS: FUROSEMIDE 80 MG TABLET PO SCH ×2 (09:22→15:08)
[2018-10-26] MEDS: CARVEDILOL 12.5 MG TABLET PO SCH ×2 (09:26→21:32)
[2018-10-26] MEDS: hydrALAZINE 25 MG TABLET PO SCH ×2 (10:51→21:37)
[2018-10-26] MEDS: SPIRONOLACTONE 25 MG TABLET PO SCH ×2 (10:51→21:32)
[2018-10-27] MEDS: ALBUTEROL/IPRATROPIUM 3 ML NEB RESP TX SCH ×4 (00:15→18:58)
[2018-10-27] MEDS: methylPREDNISolone SOD SUC 40 MG/1 ML VIAL IV SCH ×2 (02:41→14:38)
[2018-10-27] MEDS: MEROPENEM 1,000 MG in SODIUM CHLORIDE 0.9% 100 ML IV SCH ×3 (02:41→17:15)
[2018-10-27 04:54] LABS: Calcium 8.6 MG/DL (8.5-10.1); Osmolality,Calculated 282.1 MOS/KG (273-304); Potassium 4.1 MMOL/L (3.5-5.1)
[2018-10-27] MEDS: hydrALAZINE 25 MG TABLET PO SCH ×2 (09:15→21:24)
[2018-10-27] MEDS: SPIRONOLACTONE 25 MG TABLET PO SCH ×2 (09:15→21:22)
[2018-10-27] MEDS: PANTOPRAZOLE 40 MG TABLET PO SCH (09:16)
[2018-10-27] MEDS: AMIODARONE 200 MG TABLET PO SCH (09:16)
[2018-10-27] MEDS: ASPIRIN EC 81 MG TABLET PO SCH (09:16)
[2018-10-27] MEDS: CARVEDILOL 12.5 MG TABLET PO SCH ×2 (09:16→21:24)
[2018-10-27] MEDS: FUROSEMIDE 80 MG TABLET PO SCH ×2 (09:16→17:15)
[2018-10-27] MEDS: FINASTERIDE 5 MG TABLET PO SCH (14:38)
[2018-10-27] MEDS: TAMSULOSIN 0.4 MG CAPSULE PO SCH (21:23)
[2018-10-27] MEDS: DOCUSATE SODIUM 100 MG CAPSULE PO SCH (21:26)
[2018-10-28] MEDS: ALBUTEROL/IPRATROPIUM 3 ML NEB RESP TX SCH ×3 (01:20→14:19)
[2018-10-28] MEDS: methylPREDNISolone SOD SUC 40 MG/1 ML VIAL IV SCH (02:29)
[2018-10-28] MEDS: MEROPENEM 1,000 MG in SODIUM CHLORIDE 0.9% 100 ML IV SCH ×2 (02:34→09:33)
[2018-10-28 05:01] LABS: Calcium 8.1 MG/DL (8.5-10.1)
[2018-10-28] MEDS: FUROSEMIDE 80 MG TABLET PO SCH (08:31)
[2018-10-28] MEDS ORDERED: POLYETHYLENE GLYCOL POWDER 17 GM PACK PO SCH (09:00)
[2018-10-28] MEDS: PANTOPRAZOLE 40 MG TABLET PO SCH (09:30)
[2018-10-28] MEDS: SPIRONOLACTONE 25 MG TABLET PO SCH (09:30)
[2018-10-28] MEDS: FINASTERIDE 5 MG TABLET PO SCH (09:30)
[2018-10-28] MEDS: hydrALAZINE 25 MG TABLET PO SCH (09:31)
[2018-10-28] MEDS: DOCUSATE SODIUM 100 MG CAPSULE PO SCH (09:31)
[2018-10-28] MEDS: ASPIRIN EC 81 MG TABLET PO SCH (09:31)
[2018-10-28] MEDS: TAMSULOSIN 0.4 MG CAPSULE PO SCH (09:31)
[2018-10-28] MEDS: CARVEDILOL 12.5 MG TABLET PO SCH (09:31)
[2018-10-28 11:24] VITALS: BP 114/65
== END 2018-10-28 14:57 | disposition home or self-care (01) | DRG 291 ==
LOC: N.ICU → OBSVTOIN 08:05 → SUATTDRO 08:05 → N.TELEN 10-26 15:58
PROVIDERS: ADMIT Internal Medicine; ATTEND Internal Medicine

== ENCOUNTER 2019-03-25 17:37 | Inpatient (IN) ==
[2019-03-25] MEDS ORDERED: NICOTINE 21 MG/24 HR PATCH TRANSDERM PRN (20:08)
[2019-03-25] MEDS ORDERED: guaiFENesin/DM ER 600-30 MG TABLET PO PRN (20:08)
[2019-03-25] MEDS ORDERED: diphenhydrAMINE CAP 25 MG CAPSULE PO PRN (20:08)
[2019-03-25 21:17] LABS: Basophils % 0.3 % (0.0-0.8); Eosinophils % 0.2 % (0.00-10.9); Hematocrit 40.7 VOL% (42.0-52.0); Hemoglobin 12.3 GM/DL (14.0-18.0); Immature Granulocytes % 0.3 %; Immature Granulocytes Absolute 0.03 #; Lymphocytes # 0.5 10*3/uL (1.4-4.0); Mean Corpuscular HGB Conc 30.2 GM/DL (32-36); Mean Corpuscular Volume 79.2 FL (87-102); Mean Platelet Volume 10.8 FL (9.6-12.0); Monocytes % 2.2 % (1.7-12.7); Platelet Count 294 T/CUMM (130-400); Red Blood Count 5.14 MC/CUMM (3.8-5.5); Red Cell Distribution Width 18.2 % (9.3-17.3); White Blood Count 11.5 T/CUMM (4-12)
[2019-03-25 21:40] LABS: Risk Ratio 4.62
[2019-03-25 21:41] LABS: Eosinophils 1 % (0-10); Giant Platelets Few; Hypochromasia Slight; Lymphocytes 2 % (20-55); Microcytosis Slight; Platelet Estimate Adequate; Segmented Neutrophils 95 % (50-85); Total Cells Counted 100
[2019-03-25 21:42] LABS: Polychromasia Slight
[2019-03-25 21:48] LABS: Bilirubin,Total 1.2 MG/DL (0.2-1.0); Calcium 8.8 MG/DL (8.5-10.1); Osmolality,Calculated 293.1 MOS/KG (273-304); Thyroid Stimulating Hormone 2.25 uIU/ml (0.358-3.74); Total Protein 7.5 G/DL (6.4-8.3)
[2019-03-25] MEDS ORDERED: FUROSEMIDE 40 MG/4 ML VIAL IV ONE (22:15)
[2019-03-26] MEDS: ALBUTEROL/IPRATROPIUM 3 ML NEB RESP TX SCH ×4 (00:17→19:52)
[2019-03-26 07:06] LABS: Apearance,Urine Slightly Hazy (Clear); Bacteria,Urine Occasional /HPF (Few); Bilirubin,Urine Negative (Negative); Blood, Urine Large mg/dL (Negative); Glucose,Urine (UA) Negative (Negative); Hyaline Casts,Urine 58 /LPF (0-3); Ketones,Urine Negative (Negative); Mucus,Urine Occasional /LPF (Occasional); Nitrite,Urine Negative (Negative); Protein,Urine 30 MG/DL; RBC,Urine 125 /HPF (0-4); Squamous Epithelial Cell,Urine Occasional /HPF (0-10); Urine Color Yellow (Yellow); Urine Specific Gravity 1.018 (1.001-1.035); Urine Urobilinogen < 2.0 EU/DL (0.2-1.0); WBC,Urine 9 /HPF (0-6)
[2019-03-26] MEDS: FINASTERIDE 5 MG TABLET PO SCH (09:44)
[2019-03-26] MEDS: METOPROLOL SUCCINATE XL 50 MG TABLET PO SCH (09:44)
[2019-03-26] MEDS: ASPIRIN EC 81 MG TABLET PO SCH (09:44)
[2019-03-26] MEDS: TAMSULOSIN 0.4 MG CAPSULE PO SCH ×2 (09:44→21:08)
[2019-03-26] MEDS ORDERED: FUROSEMIDE 40 MG/4 ML VIAL ONE (09:45)
[2019-03-26] MEDS: ONDANSETRON 4 MG/2 ML VIAL IV PRN ×2 (13:28→23:52)
[2019-03-26] MEDS: PANTOPRAZOLE 40 MG TABLET PO SCH ×2 (15:35→21:08)
[2019-03-26] MEDS: SUCRALFATE 1 GM/10 ML UDCUP PO SCH ×2 (15:35→21:08)
[2019-03-26] MEDS ORDERED: POLYETHYLENE GLYCOL POWDER 17 GM PACK PO PRN (21:16)
[2019-03-27] MEDS: ALBUTEROL/IPRATROPIUM 3 ML NEB RESP TX SCH ×4 (02:21→19:21)
[2019-03-27 04:31] LABS: Basophils % 0.1 % (0.0-0.8); Hematocrit 38.1 VOL% (42.0-52.0); Hemoglobin 11.4 GM/DL (14.0-18.0); Immature Granulocytes % 0.7 %; Immature Granulocytes Absolute 0.07 #; Lymphocytes # 0.4 10*3/uL (1.4-4.0); Lymphocytes % 3.5 % (21.2-54.2); Mean Corpuscular HGB Conc 29.9 GM/DL (32-36); Mean Corpuscular Volume 79.2 FL (87-102); Mean Platelet Volume 11.1 FL (9.6-12.0); Monocytes % 6.8 % (1.7-12.7); NRBC # 0.02 10*3/uL; Neutrophils % 88.9 % (38.7-73.9); Platelet Count 275 T/CUMM (130-400); Red Blood Count 4.81 MC/CUMM (3.8-5.5); White Blood Count 10.7 T/CUMM (4-12)
[2019-03-27] MEDS: ACETAMINOPHEN 325 MG TABLET PO PRN ×3 (04:35→18:38)
[2019-03-27 04:53] LABS: Lymphocytes 5 % (20-55); Segmented Neutrophils 90 % (50-85); Total Cells Counted 100
[2019-03-27 04:54] LABS: Hypochromasia 1+; Microcytosis Slight; Ovalocytes Slight; Platelet Estimate Adequate
[2019-03-27 04:58] LABS: Calcium 8.8 MG/DL (8.5-10.1); Osmolality,Calculated 301.1 MOS/KG (273-304)
[2019-03-27] MEDS: SUCRALFATE 1 GM/10 ML UDCUP PO SCH ×3 (07:59→17:37)
[2019-03-27] MEDS: ASPIRIN EC 81 MG TABLET PO SCH (09:05)
[2019-03-27] MEDS: FINASTERIDE 5 MG TABLET PO SCH (09:05)
[2019-03-27] MEDS: PANTOPRAZOLE 40 MG TABLET PO SCH (09:05)
[2019-03-27] MEDS: TAMSULOSIN 0.4 MG CAPSULE PO SCH (09:05)
[2019-03-27] MEDS: METOPROLOL SUCCINATE XL 50 MG TABLET PO SCH (09:05)
[2019-03-27] MEDS: ONDANSETRON 4 MG/2 ML VIAL IV PRN (09:59)
[2019-03-27 10:40] LABS: Calcium Urine Quant < 5.0 MG/DL; Calcium/Creatinine Ratio,Urine 0.1 RATIO (<2.0)
[2019-03-27] MEDS: ALBUMIN 25% 25 GM in PREMIX 1 EACH IV SCH (17:27)
[2019-03-27] MEDS: NYSTATIN 500,000 UNIT/5 ML UDCUP SWISH/SWAL SCH (17:46)
[2019-03-27] MEDS: MORPHINE 4 MG/1 ML VIAL IV PRN (19:30)
[2019-03-28] MEDS: ALBUMIN 25% 25 GM in PREMIX 1 EACH IV SCH ×2 (01:00→18:41)
[2019-03-28] MEDS: ALBUTEROL/IPRATROPIUM 3 ML NEB RESP TX SCH ×4 (01:50→19:10)
[2019-03-28] MEDS: ONDANSETRON 4 MG/2 ML VIAL IV PRN ×4 (02:35→23:47)
[2019-03-28] MEDS: SUCRALFATE 1 GM/10 ML UDCUP PO SCH ×5 (05:22→21:50)
[2019-03-28] MEDS: NYSTATIN 500,000 UNIT/5 ML UDCUP SWISH/SWAL SCH ×5 (05:22→21:50)
[2019-03-28] MEDS: TAMSULOSIN 0.4 MG CAPSULE PO SCH ×3 (05:22→21:50)
[2019-03-28 05:23] LABS: Basophils % 0.1 % (0.0-0.8); Eosinophils % 0.3 % (0.00-10.9); Hematocrit 37.3 VOL% (42.0-52.0); Hemoglobin 11.4 GM/DL (14.0-18.0); Immature Granulocytes % 0.7 %; Immature Granulocytes Absolute 0.08 #; Lymphocytes # 0.8 10*3/uL (1.4-4.0); Mean Corpuscular HGB Conc 30.6 GM/DL (32-36); Mean Corpuscular Volume 78.2 FL (87-102); NRBC # 0.07 10*3/uL; Neutrophils % 84.9 % (38.7-73.9); Platelet Count 276 T/CUMM (130-400); Red Blood Count 4.77 MC/CUMM (3.8-5.5); Red Cell Distribution Width 17.8 % (9.3-17.3); White Blood Count 11.4 T/CUMM (4-12)
[2019-03-28] MEDS: PANTOPRAZOLE 40 MG TABLET PO SCH ×3 (05:23→21:50)
[2019-03-28 05:54] LABS: Albumin 3.6 G/DL (3.4-5.0); Bilirubin,Total 2.6 MG/DL (0.2-1.0); Calcium 9.3 MG/DL (8.5-10.1); Osmolality,Calculated 293.4 MOS/KG (273-304); Total Protein 7.5 G/DL (6.4-8.3)
[2019-03-28] MEDS: MORPHINE 4 MG/1 ML VIAL IV PRN ×2 (06:40→20:11)
[2019-03-28] MEDS: FINASTERIDE 5 MG TABLET PO SCH (08:47)
[2019-03-28] MEDS: METOPROLOL SUCCINATE XL 50 MG TABLET PO SCH (08:48)
[2019-03-28] MEDS: ASPIRIN EC 81 MG TABLET PO SCH (08:48)
[2019-03-28] MEDS: DOBUTamine 500 MG/250 ML PREMIX IV SCH (08:52)
[2019-03-28] MEDS: AMIODARONE 200 MG TABLET PO SCH (10:55)
[2019-03-28] MEDS ORDERED: ONDANSETRON 4 MG TABLET PO PRN (12:53)
[2019-03-29] MEDS: ALBUTEROL/IPRATROPIUM 3 ML NEB RESP TX SCH ×3 (00:42→13:17)
[2019-03-29 05:38] LABS: Basophils % 0.2 % (0.0-0.8); Eosinophils % 0.1 % (0.00-10.9); Hematocrit 38.7 VOL% (42.0-52.0); Hemoglobin 11.7 GM/DL (14.0-18.0); Immature Granulocytes % 0.6 %; Immature Granulocytes Absolute 0.07 #; Lymphocytes # 0.6 10*3/uL (1.4-4.0); Lymphocytes % 4.4 % (21.2-54.2); Mean Corpuscular HGB Conc 30.2 GM/DL (32-36); Mean Corpuscular Volume 78.3 FL (87-102); Mean Platelet Volume 10.9 FL (9.6-12.0); Monocytes % 11.2 % (1.7-12.7); NRBC # 0.08 10*3/uL; Neutrophils % 83.5 % (38.7-73.9); Platelet Count 250 T/CUMM (130-400); Red Blood Count 4.94 MC/CUMM (3.8-5.5); Red Cell Distribution Width 18.1 % (9.3-17.3); White Blood Count 12.6 T/CUMM (4-12)
[2019-03-29 06:07] LABS: Hypochromasia 1+; Lymphocytes 4 % (20-55); Microcytosis Slight; Nucleated Red Blood Cells 2 (0-5); Platelet Estimate Adequate; Segmented Neutrophils 83 % (50-85); Total Cells Counted 100
[2019-03-29 06:10] LABS: Albumin 3.5 G/DL (3.4-5.0); Bilirubin,Total 4.7 MG/DL (0.2-1.0); Calcium 9.3 MG/DL (8.5-10.1); Osmolality,Calculated 295.5 MOS/KG (273-304); Total Protein 7.3 G/DL (6.4-8.3)
[2019-03-29] MEDS: METOPROLOL SUCCINATE XL 50 MG TABLET PO SCH (10:13)
[2019-03-29] MEDS: FINASTERIDE 5 MG TABLET PO SCH (10:13)
[2019-03-29] MEDS: AMIODARONE 200 MG TABLET PO SCH (10:13)
[2019-03-29] MEDS: ASPIRIN EC 81 MG TABLET PO SCH (10:13)
[2019-03-29] MEDS: PANTOPRAZOLE 40 MG TABLET PO SCH (10:14)
[2019-03-29] MEDS: TAMSULOSIN 0.4 MG CAPSULE PO SCH (10:14)
[2019-03-29] MEDS: SUCRALFATE 1 GM/10 ML UDCUP PO SCH ×2 (10:15→12:46)
[2019-03-29] MEDS: NYSTATIN 500,000 UNIT/5 ML UDCUP SWISH/SWAL SCH (10:15)
[2019-03-29] MEDS: ONDANSETRON 4 MG/2 ML VIAL IV PRN (10:16)
[2019-03-29 10:20] LABS: Hepatitis B Core IgM Quant 0.22 Index; Hepatitis B Surface Ag Quant < 0.10 Index; Hepatitis B Surface Ag Result Negative (Negative); Hepatitis C Virus Ab Quant 0.08 Index; Hepatitis C Virus Ab Result Negative (Negative)
[2019-03-29 11:19] VITALS: BP 118/90
[2019-03-29] MEDS: DOBUTamine 500 MG/250 ML PREMIX IV SCH (12:46)
== END 2019-03-29 15:07 | disposition hospice, home (50) | DRG 308 ==
LOC: N.TELES → SUATTDRO 19:02
PROVIDERS: ADMIT Internal Medicine; ATTEND Internal Medicine